=== PATIENT | male | born 1985 | race Hispanic/Latino ===

== ENCOUNTER 2018-08-08 20:59 | Emergency (ER) | payer OTHER, SELFPAY ==
[2018-08-08 21:07] VITALS: BP 142/79; PULSE 85; RESP 21; TEMP 36.5; O2SAT 100; BMI 25.8
--- NOTE | 2018-08-08 21:11 | ED.NEUROSD ---
HPI - Neuro Symptoms/Deficit General Chief Complaint: Neuro Symptoms/Deficit Stated Complaint: LEFT SIDE NUMBNESS VERTIGO HARD TIME SWALLOWING Time Seen by Provider: 08/08/18 21:09 Source: patient Mode of arrival: ambulatory Limitations: no limitations History of Present Illness HPI Narrative: A 32-year-old male presents to the emergency department today with a chief complaint of neurologic constellation of symptoms including headache and his left frontal region as well as some left-sided facial numbness. The numbness has been present today for about the past 6 or 7 hr and came on suddenly but he has had episodes in the past. He does not think there is any temporal relationship between the numbness and his pain. Additionally the patient complains of the perception of the an episode of difficulty swallowing earlier today. He denies any other focal neurologic findings. He recently had what he describes as a sinus infection with drainage of purulent sputum from left nostril. He denies chest pain or shortness of breath. He denies history of hypertension, hyperlipidemia, AFib, smoking or diabetes. Onset (ago): hour(s) Location: left face History of same: Yes Severity: mild Quality: numb Relieving factors: none Exacerbating factors: none Context: gradual onset On Anticoagulants: No Treatments Prior to Arrival: none Related Data Home Medications Medication Instructions Recorded Confirmed No Known Home Medications 08/08/18 08/08/18 Allergies Allergy/AdvReac Type Severity Reaction Status Date / Time No Known Drug Allergies Allergy Verified 08/08/18 21:14 Review of Systems Review of Systems All systems reviewed & are unremarkable except as noted in HPI and below Constitutional Denies chills, Denies fever(s), Denies lethargy and Denies weakness Eyes Denies change in vision, Denies eye discharge, Denies irritation and Denies loss of vision ENT Ears, Nose, Mouth, and Throat: Denies change in voice, Denies neck pain and Denies sore throat Cardiovascular Denies chest pain, Denies irregular heart rhythm, Denies lightheadedness, Denies palpitations, Denies dyspnea, Denies dyspnea on exertion and Denies orthopnea Respiratory Denies cough, Denies dyspnea, Denies dyspnea on exertion and Denies wheezing Gastrointestinal Gastrointestinal: Denies abdominal pain, Denies change in bowel habits, Denies diarrhea, Denies nausea and Denies vomiting Genitourinary Denies hematuria, Denies flank pain, Denies urinary incontinence and Denies urinary urgency Musculoskeletal Denies neck pain and Reports tingling Integumentary/Breasts Denies pruritus, Denies erythema, Denies rash and Denies wounds Neurologic Denies confusion, Denies loss of vision, Reports tingling and Denies weakness Psychiatric Denies anxiety, Denies confusion, Denies depression, Denies homicidal ideation and Denies suicidal ideation Endocrine Denies palpitations Hematologic/Lymphatic Denies easy bruising Allergic/Immunologic Denies wheezing [facility] Social History Smoking Status: Never smoker Exam Narrative Exam Narrative: GENERAL: This is a well-nourished, well-developed patient, in mild distress. HEAD: Atraumatic. Normocephalic. No temporal or scalp tenderness. EYES: Pupils equal round and reactive. Extraocular motions intact. No scleral icterus. No injection or drainage. ENT: Nose without bleeding, purulent drainage or septal hematoma. Throat without erythema, tonsillar hypertrophy or exudate. Uvula midline. Airway patent. NECK: Trachea midline. No JVD or lymphadenopathy. Supple, nontender, no meningeal signs. CARDIOVASCULAR: Regular rate and rhythm without murmurs, gallops, or rubs. RESPIRATORY: Clear to auscultation. Breath sounds equal bilaterally. No wheezes, rales, or rhonchi. GASTROINTESTINAL: Abdomen soft, non-tender, nondistended. No hepato-splenomegaly, or palpable masses. No guarding. EXTREMITIES: No clubbing, cyanosis, or edema. No joint tenderness, effusion, or edema noted. BACK: Nontender without deformity or crepitance. No flank tenderness. NEURO: AOx3. SKIN: No rash or erythema. NIH Stroke Scale 1a. LOC: Patient is alert and keenly responsive (0) 1b. LOC Questions: Patient answers both LOC questions accurately (0) 1c. LOC Commands: Patient performs both tasks correctly (0) 2. Best Gaze: Normal (0) 3. Visual: No visual loss (0) 4. Facial palsy: Normal symmetrical movements (0) 5. Motor arm: No drift (0) 6. Motor leg: No drift (0) 7. Limb ataxia: Absent (0) 8. Sensory: Normal (0) 9. Best language: No aphasia; normal (0) 10. Dysarthria: Normal (0) 11. Extinction and inattention: No abnormality (0) NIHSS: 0 Initial Vital Signs Initial Vital Signs: Vital Signs Temperature 97.7 F 08/08/18 21:07 Pulse Rate 85 08/08/18 21:07 Respiratory Rate 21 08/08/18 21:07 Blood Pressure 142/79 H 08/08/18 21:07 Pulse Oximetry 100 08/08/18 21:07 MDM - Neuro Symptoms/Deficit Differential Diagnosis Likely subarachnoid hemorrhage, peripheral neuropathy, cerebrovascular accident, multiple sclerosis and transient cerebral ischemia Medical Records Attestation: I reviewed the patient's medical records. Lab Data Attestation: I reviewed the patient's lab results. Result diagrams: 08/08/18 21:10 08/08/18 21:10 Lab Results 08/08/18 08/08/18 Range/Units 21:10 21:10 WBC 10.4 (4.5-11.0) X10^3/uL RBC 4.72 (4.5-5.9) X10^6/uL Hgb 14.3 (13.5-17.5) g/dL Hct 41.0 (41-53) % MCV 86.7 (80-100) fL MCH 30.3 (26-34) PG MCHC 34.9 (30-36) % RDW 12.7 (11.6-14.8) % Plt Count 220 (150-400) X10^3/uL Neut % (Auto) 62.9 (50-75) % Lymph % (Auto) 27.7 (25-40) % Mcdonough % (Auto) 7.0 (3-14) % Eos % (Auto) 1.8 L (2-4) % Baso % (Auto) 0.6 (0-2) % Neut # (Auto) 6500 H (2625-0188) /uL Sodium 142 (137-145) mmol/L Potassium 4.2 (3.4-5.1) mmol/L Chloride 104 (98-107) mmol/L Carbon Dioxide 27 (22-32) mmol/L BUN 28 H (9-20) mg/dL Creatinine 1.20 (0.66-1.25) mg/dL Estimated GFR > 60.0 (>60) mL/min BUN/Creatinine Ratio 23.3 H (6-22) Glucose 109 H (70-100) mg/dL Calcium 9.6 (8.4-10.2) mg/dL Imaging Data CT scan - head: Radiologist's impression: No acute process CT angio of head neck: No acute process MDM Narrative Medical decision making narrative: Multiple diagnoses including ischemic and hemorrhagic stroke. Thought less likely given resolution of symptoms as well as normal imaging. Contreras's palsy considered but patient has resolution of symptoms and findings not limited to lower motor neuron of the facial nerve. Migraine or migraine equivalent considered very likely Discharge Plan Departure Patient Disposition: Home Clinical Impression: Headache Discharge Date/Time: 08/08/18 23:55 Interventions: ED Discharge Assessment Last Done: 08/08/18 23:53 Instructions: DI for Headache Activity Restrictions/Additional Instructions: *You have been diagnosed with [ acute headache ] *What to do: *Take medications as directed *Follow up with your primary care provider on August 14 as planned, but let them know you were seen in the Emergency Department and that we ask that you be seen in follow up *Return to ER if you should have any new, worsening or concerning symptoms Prescriptions: No Action No Known Home Medications RF: 0
--- NOTE | 2018-08-08 21:29 | DI.CT.S_ITS ---
PROCEDURE: CT HEAD/BRAIN WO CON INDICATIONS: HEREDIA, neuro symptoms TECHNIQUE: Noncontrast 4.5 mm thick angled axial sections acquired from the foramen magnum to the vertex, with coronal and sagittal reformats. For radiation dose reduction, the following was used: automated exposure control, adjustment of mA and/or kV according to patient size. COMPARISON: None. FINDINGS: Image quality: Excellent. CSF spaces: Basal cisterns are patent. No extra-axial fluid collections. Ventricles are normal in size and shape. Brain: No midline shift. No intracranial masses or hemorrhage. Galvan-white matter interface is normal. Skull and face: Calvarium and visualized facial bones are intact, without suspicious lesions. Sinuses: Mild right maxillary sinus disease. IMPRESSION: No acute intracranial process. Dictated by: Ze Washington M.D. on 08/08/2018 at 22:15 Approved by: Ze Washington M.D. on 08/08/2018 at 22:18
[2018-08-08 21:30] VITALS: BP 105/65; PULSE 69; RESP 16; O2SAT 99
--- NOTE | 2018-08-08 22:14 | DI.CT.S_ITS ---
PROCEDURE: CT ANGIO HEAD AND NECK INDICATIONS: headache, numbness, dizziness, can't swallow TECHNIQUE: Pre-contrast 4.5 mm thick sections acquired from the foramen magnum to the vertex. After the administration of intravenous contrast, 1 mm thick sections acquired from the aortic arch through the [place] of [place]. Post-contrast 4.5 mm thick sections then re-acquired from the foramen magnum to the vertex. 3-dimensional [id number]-xzrlbvbmb-czkzmgysti (MIP) and/or volume rendering reformats were acquired of the central intracranial vasculature and neck separately. COMPARISON: [facility], CT, CT HEAD/BRAIN WO CON, 08/08/2018, 21:33. FINDINGS: Image quality: Excellent. BRAIN: CSF spaces: Ventricles are normal in size and shape. Basal cisterns are patent. No extra-axial fluid collections. Brain: No midline arch. The origins of the common carotid arteries appear patent. The common carotid arteries demonstrate normal caliber and courses. The bifurcation regions are both widely patent. The internal carotid arteries demonstrate normal calibers and courses. Posterior circulation: The origins of the vertebral arteries both appear widely patent. The more superior extracranial portions of both vertebral arteries also demonstrate normal courses and calibers. They join to form a normal appearing basilar artery. Soft tissues: Visualized neck soft tissues demonstrate no suspicious abnormalities. Bones: No suspicious bony lesions. Visualized cervical spine demonstrates loss of the normal cervical lordosis, which may be secondary to muscle spasm or positioning. IMPRESSION: #1. No acute intracranial abnormality. #2. No CTA evidence of acute vascular pathology of the large vessels of the head and neck. This report is concordant with the overnight manufacturing supervisor 2nd shift radiology preliminary report of Dr. Ihsan Young. Any quantitative measurements of stenosis were performed using NASCET criteria. Dictated by: Rodriguez Lazo M.D. on 08/09/2018 at 18:40 Approved by: Rodriguez Lazo M.D. on 08/09/2018 at 18:58
[2018-08-08 22:22] LABS: Add Manual Diff / Slide Review NO; Basophils Percent Auto 0.6 % (0-2); Eosinophils Percent Auto 1.8 % (2-4); Hemoglobin 14.3 g/dL (13.5-17.5); Lymphocytes Percent Auto 27.7 % (25-40); Mean Corpuscular HGB Conc 34.9 % (30-36); Mean Corpuscular Hemoglobin 30.3 PG (26-34); Mean Corpuscular Volume 86.7 fL (80-100); Neutrophils Absolute Auto 6500 /uL (3000-5900); Neutrophils Percent Auto 62.9 % (50-75); Platelet Count 220 X10^3/uL (150-400); Red Blood Cell Count 4.72 X10^6/uL (4.5-5.9); Red Cell Distribution Width 12.7 % (11.6-14.8); White Blood Cell Count 10.4 X10^3/uL (4.5-11.0)
[2018-08-08 22:40] VITALS: BP 118/62; PULSE 76; RESP 16; O2SAT 100
[2018-08-08 23:37] LABS: BUN Creatinine Ratio 23.3 (6-22); Blood Urea Nitrogen 28 mg/dL (9-20); Calcium 9.6 mg/dL (8.4-10.2); Carbon Dioxide 27 mmol/L (22-32); Chloride 104 mmol/L (98-107); Estimated Glomerular Filt Rate > 60.0 mL/min (>60); Glucose 109 mg/dL (70-100); HEMOLYSIS 15 (0-50); Potassium 4.2 mmol/L (3.4-5.1); Sodium 142 mmol/L (137-145)
[2018-08-08 23:48] VITALS: BP 122/67; PULSE 63; RESP 17; O2SAT 98
[2018-08-08 23:53] VITALS: BP 122/67; PULSE 64; RESP 16; TEMP 36.4; O2SAT 98
--- NOTE | 2018-08-10 02:15 | ED_ITS ---
HPI - Neuro Symptoms/Deficit General Chief Complaint: Neuro Symptoms/Deficit Stated Complaint: LEFT SIDE NUMBNESS VERTIGO HARD TIME SWALLOWING Time Seen by Provider: 08/08/18 21:09 Source: patient Mode of arrival: ambulatory Limitations: no limitations History of Present Illness HPI Narrative: A 32-year-old male presents to the emergency department today with a chief complaint of neurologic constellation of symptoms including headache and his left frontal region as well as some left-sided facial numbness. The numbness has been present today for about the past 6 or 7 hr and came on suddenly but he has had episodes in the past. He does not think there is any temporal relationship between the numbness and his pain. Additionally the patient complains of the perception of the an episode of difficulty swallowing earlier today. He denies any other focal neurologic findings. He recently had what he describes as a sinus infection with drainage of purulent sputum from left nostril. He denies chest pain or shortness of breath. He denies history of hypertension, hyperlipidemia, AFib, smoking or diabetes. Onset (ago): hour(s) Location: left face History of same: Yes Severity: mild Quality: numb Relieving factors: none Exacerbating factors: none Context: gradual onset On Anticoagulants: No Treatments Prior to Arrival: none Related Data Home Medications Medication Instructions Recorded Confirmed No Known Home Medications 08/08/18 08/08/18 Allergies Allergy/AdvReac Type Severity Reaction Status Date / Time No Known Drug Allergies Allergy Verified 08/08/18 21:14 Review of Systems Review of Systems All systems reviewed & are unremarkable except as noted in HPI and below Constitutional Denies chills, Denies fever(s), Denies lethargy and Denies weakness Eyes Denies change in vision, Denies eye discharge, Denies irritation and Denies loss of vision ENT Ears, Nose, Mouth, and Throat: Denies change in voice, Denies neck pain and Denies sore throat Cardiovascular Denies chest pain, Denies irregular heart rhythm, Denies lightheadedness, Denies palpitations, Denies dyspnea, Denies dyspnea on exertion and Denies orthopnea Respiratory Denies cough, Denies dyspnea, Denies dyspnea on exertion and Denies wheezing Gastrointestinal Gastrointestinal: Denies abdominal pain, Denies change in bowel habits, Denies diarrhea, Denies nausea and Denies vomiting Genitourinary Denies hematuria, Denies flank pain, Denies urinary incontinence and Denies urinary urgency Musculoskeletal Denies neck pain and Reports tingling Integumentary/Breasts Denies pruritus, Denies erythema, Denies rash and Denies wounds Neurologic Denies confusion, Denies loss of vision, Reports tingling and Denies weakness Psychiatric Denies anxiety, Denies confusion, Denies depression, Denies homicidal ideation and Denies suicidal ideation Endocrine Denies palpitations Hematologic/Lymphatic Denies easy bruising Allergic/Immunologic Denies wheezing [facility] Social History Smoking Status: Never smoker Exam Narrative Exam Narrative: GENERAL: This is a well-nourished, well-developed patient, in mild distress. HEAD: Atraumatic. Normocephalic. No temporal or scalp tenderness. EYES: Pupils equal round and reactive. Extraocular motions intact. No scleral icterus. No injection or drainage. ENT: Nose without bleeding, purulent drainage or septal hematoma. Throat without erythema, tonsillar hypertrophy or exudate. Uvula midline. Airway patent. NECK: Trachea midline. No JVD or lymphadenopathy. Supple, nontender, no meningeal signs. CARDIOVASCULAR: Regular rate and rhythm without murmurs, gallops, or rubs. RESPIRATORY: Clear to auscultation. Breath sounds equal bilaterally. No wheezes , rales, or rhonchi. GASTROINTESTINAL: Abdomen soft, non-tender, nondistended. No hepato-splenomegaly , or palpable masses. No guarding. EXTREMITIES: No clubbing, cyanosis, or edema. No joint tenderness, effusion, or edema noted. BACK: Nontender without deformity or crepitance. No flank tenderness. NEURO: AOx3. SKIN: No rash or erythema. NIH Stroke Scale 1a. LOC: Patient is alert and keenly responsive (0) 1b. LOC Questions: Patient answers both LOC questions accurately (0) 1c. LOC Commands: Patient performs both tasks correctly (0) 2. Best Gaze: Normal (0) 3. Visual: No visual loss (0) 4. Facial palsy: Normal symmetrical movements (0) 5. Motor arm: No drift (0) 6. Motor leg: No drift (0) 7. Limb ataxia: Absent (0) 8. Sensory: Normal (0) 9. Best language: No aphasia; normal (0) 10. Dysarthria: Normal (0) 11. Extinction and inattention: No abnormality (0) NIHSS: 0 Initial Vital Signs Initial Vital Signs: Vital Signs Temperature 97.7 F 08/08/18 21:07 Pulse Rate 85 08/08/18 21:07 Respiratory Rate 21 08/08/18 21:07 Blood Pressure 142/79 H 08/08/18 21:07 Pulse Oximetry 100 08/08/18 21:07 MDM - Neuro Symptoms/Deficit Differential Diagnosis Likely subarachnoid hemorrhage, peripheral neuropathy, cerebrovascular accident , multiple sclerosis and transient cerebral ischemia Medical Records Attestation: I reviewed the patient's medical records. Lab Data Attestation: I reviewed the patient's lab results. Result diagrams: 08/08/18 21:10 08/08/18 21:10 Lab Results 08/08/18 08/08/18 Range/Units 21:10 21:10 WBC 10.4 (4.5-11.0) X10^3/uL RBC 4.72 (4.5-5.9) X10^6/uL Hgb 14.3 (13.5-17.5) g/dL Hct 41.0 (41-53) % MCV 86.7 (80-100) fL MCH 30.3 (26-34) PG MCHC 34.9 (30-36) % RDW 12.7 (11.6-14.8) % Plt Count 220 (150-400) X10^3/uL Neut % (Auto) 62.9 (50-75) % Lymph % (Auto) 27.7 (25-40) % Marshall % (Auto) 7.0 (3-14) % Eos % (Auto) 1.8 L (2-4) % Baso % (Auto) 0.6 (0-2) % Neut # (Auto) 6500 H (4042-6374) /uL Sodium 142 (137-145) mmol/L Potassium 4.2 (3.4-5.1) mmol/L Chloride 104 (98-107) mmol/L Carbon Dioxide 27 (22-32) mmol/L BUN 28 H (9-20) mg/dL Creatinine 1.20 (0.66-1.25) mg/dL Estimated GFR > 60.0 (>60) mL/min BUN/Creatinine Ratio 23.3 H (6-22) Glucose 109 H (70-100) mg/dL Calcium 9.6 (8.4-10.2) mg/dL Imaging Data CT scan - head: Radiologist's impression: No acute process CT angio of head neck: No acute process MDM Narrative Medical decision making narrative: Multiple diagnoses including ischemic and hemorrhagic stroke. Thought less likely given resolution of symptoms as well as normal imaging. Contreras's palsy considered but patient has resolution of symptoms and findings not limited to lower motor neuron of the facial nerve. Migraine or migraine equivalent considered very likely Discharge Plan Departure Patient Disposition: Home Clinical Impression: Headache Discharge Date/Time: 08/08/18 23:55 Interventions: ED Discharge Assessment Last Done: 08/08/18 23:53 Instructions: DI for Headache Activity Restrictions/Additional Instructions: *You have been diagnosed with [ acute headache ] *What to do: *Take medications as directed *Follow up with your primary care provider on August 14 as planned, but let them know you were seen in the Emergency Department and that we ask that you be seen in follow up *Return to ER if you should have any new, worsening or concerning symptoms Prescriptions: No Action No Known Home Medications RF: 0
== END 2018-08-08 23:55 | disposition home or self-care (01) ==
PROVIDERS: Emergency Provider Emergency Medicine
DX: R51 Headache (principal)
CPT/HCPCS: 36591; 70450; 70496; 70498; 80048; 85025; 99283; 99284; Q9967

== ENCOUNTER 2019-10-06 14:55 | Emergency (ER) | payer OTHER, SELFPAY ==
[2019-10-06 15:06] VITALS: BP 143/74; PULSE 69; RESP 18; TEMP 36.4; O2SAT 100; BMI 27.2
--- NOTE | 2019-10-06 15:20 | ED_ITS ---
HPI - Neuro Symptoms/Deficit General Chief Complaint: Neuro Symptoms/Deficit Stated Complaint: pressure in head and tingling on face Time Seen by Provider: 10/06/19 15:17 Source: patient Mode of arrival: Family Vehicle Limitations: no limitations History of Present Illness HPI Narrative: Is patient is a 33-year-old male with variety of symptoms ongoing for last 2 weeks. He says that he has intermittent headaches not consistent he currently does not have a headache. He did have some right facial numbness but now he has of bilateral facial numbness he says it just feels different on each side. Which is fairly constant. He also has bilateral flank pain, nonradiating to his legs. He has some minimal abdominal discomfort on both sides, no nausea or vomiting. He has no fevers no neck pain no painful frequent urination no hematuria. He has been taking Aleve without any relief, he denies any visual changes. He sometimes has a band around his head behind his eyes but does not currently. On Anticoagulants: No Related Data Previous Rx's Medication Instructions Recorded prednisone 20 mg PO DAILY #5 tab 10/06/19 Allergies Allergy/AdvReac Type Severity Reaction Status Date / Time No Known Drug Allergies Allergy Verified 10/06/19 15:11 Review of Systems Review of Systems ROS Unobtainable: All systems reviewed & are unremarkable except as noted in HPI and below Constitutional Constitutional: Denies chills, Denies fever(s), Denies lethargy and Reports weakness Eyes Eyes: Denies change in vision, Denies eye discharge, Denies irritation and Denies loss of vision ENT Ears, Nose, Mouth, and Throat: Denies change in voice, Denies neck pain and Denies sore throat Cardiovascular Cardiovascular: Denies chest pain, Denies irregular heart rhythm, Denies lightheadedness, Denies palpitations, Denies dyspnea, Denies dyspnea on exertion and Denies orthopnea Respiratory Respiratory: Denies cough, Denies dyspnea, Denies dyspnea on exertion and Denies wheezing Gastrointestinal Gastrointestinal: Denies abdominal pain, Denies change in bowel habits, Denies diarrhea, Denies nausea and Denies vomiting Musculoskeletal Musculoskeletal: Denies neck pain and Reports tingling Neurologic Neurologic: Denies confusion, Denies loss of vision, Reports tingling, Denies paresthesias, Denies tremor(s) and Reports weakness Psychiatric Psychiatric: Denies anxiety, Denies confusion, Denies depression, Denies homicidal ideation and Denies suicidal ideation Endocrine Endocrine: Denies palpitations Allergic/Immunologic Allergic/Immunologic: Denies wheezing Patient History Medical History Patient denies medical problems (Acute) Social History Smoking Status: Never smoker alcohol intake frequency: 0-2 drinks per day Substance Use Type: does not use Exam Initial Vital Signs Initial Vital Signs: Vital Signs Temperature 97.6 F 10/06/19 15:06 Pulse Rate 69 10/06/19 15:06 Respiratory Rate 18 10/06/19 15:06 Blood Pressure 143/74 H 10/06/19 15:06 Pulse Oximetry 100 10/06/19 15:06 GENERAL: Well-appearing, well-nourished and in no acute distress. HEENT: Head atraumatic,EOMI, pupils reactive, face symmetric, very minimal tenderness in temporal a areas bilaterally CARDIOVASCULAR: Regular rate and rhythm without murmurs, rubs or gallops. RESPIRATORY: Breath sounds equal bilaterally, no wheezes rales or rhonchi. ABDOMEN: Soft, nontender. Normoactive bowel sounds all 4 quadrants. No guarding or rebound. : Minimal bilateral flank pain no guarding or rebound EXTREMITIES: Normal range of motion, no clubbing or edema. Neurovascularly intact NEUROLOGICAL: Alert and oriented x4.Normal gait and speech. Cranial nerves II through XII grossly intact. [employer] strength equal bilaterally good [id number] bilaterally SKIN: Warm, dry, no laceration, no petechiae, no rashes or lesions. Scores NIH Stroke Scale Level of Conciousness: Alert, keenly responsive Ask month/age: Answers both questions correctly. Open/close eyes, close hand: Performs both tasks correctly Best gaze horizontal: Normal Visual steward: No visual loss Facial palsy: Normal symetrical movement Left arm drift: No drift for full 10 sec Right arm drift: No drift for full 10 sec Left leg drift: No drift for full 10 sec Right leg drift: No drift for full 10 sec Limb ataxia: Absent Sensory on face/arms/legs: Normal, no sensory loss Best language: No aphasia, normal Dysarthria: Normal Extinction or inattention: No abnormality Total NIH Stroke scale score: 0 Course Orders Ordered: Discontinued Medications Ketorolac Tromethamine (Toradol) 30 mg IM NOW ONE Stop: 10/06/19 15:36 Last Admin: 10/06/19 16:26 Dose: 30 mg Documented by: MELANIA Vital Signs Vital signs: Vital Signs - 8 hr 10/06/19 15:06 10/06/19 17:37 Temperature 97.6 F 98.7 F Pulse Rate 69 56 L Respiratory Rate 18 14 Blood Pressure 143/74 H 112/73 Pulse Oximetry 100 100 MDM - Neuro Symptoms/Deficit Lab Data Attestation: I reviewed the patient's lab results. Labs: Urine Dip Bedside Urine Glucose Negative Bedside Urine Bilirubin - Negative Bedside Urine Ketone - Negative Urine Specific [place] 1.005 Bedside Urine Occult Blood - Negative Bedside Urine pH 7.5 Bedside Urine Protein - Negative Bedside Urine Urobilinogen - Negative Bedside Urine Nitrite - Negative Bedside Urine Leukocytes - Negative Esterase [facility] Narrative Medical decision making narrative: Patient's back pain is slightly better after Toradol. No sign of UTI he has had bilateral facial numbness. It is really only tingling bilaterally. No sign of stroke. He overall appears comfortable. At this time I recommend follow up with PCP on the face he got a Neurology appointment but is a number of months away. At this time will try prednisone to see if that helped any of his symptoms. No sign of [place]ras palsy. Discharge Plan Departure Patient Disposition: Home Clinical Impression: Facial numbness Back pain Qualifiers: Back pain location: low back pain Chronicity: acute Back pain laterality: bilateral Sciatica presence: without sciatica Qualified Code(s): M54.5 - Low back pain Instructions: DI for Low Back Pain, DI for Numbness/tingling Activity Restrictions/Additional Instructions: *You have been diagnosed with low back pain with facial numbness *What to do: At this time unknown what is causing her facial numbness. No sign of UTI. You may require neurology evaluation if headaches and facial numbness continue at this time no indication of stroke *Continue to take medications as directed Prednisone 20 mg once a day for 5 days (do not combine with NSAIDs such as ibuprofen Aleve Advil, you may take Tylenol as directed) *Follow up with your primary care provider in 2-3 days *Return to ER if you should have extremity weakness increasing numbness inability to close or open eyes facial drooping or any new, worsening or concerning symptoms Prescriptions: New prednisone 20 mg tablet 20 mg PO DAILY Qty: 5 RF: 0
[2019-10-06] MEDS: KETOROLAC 60 MG/2 ML VIAL 30 MG IM (16:26)
[2019-10-06 17:37] VITALS: BP 112/73; PULSE 56; RESP 14; TEMP 37.1; O2SAT 100
--- NOTE | 2019-10-06 17:58 | PC.NURSE ---
Patient reports facial tingling x14 days. Started out on one side, now on both the last few days. Also reports some sinus pressure, pain.
== END 2019-10-06 17:37 | disposition home or self-care (01) ==
PROVIDERS: Emergency Provider Emergency Medicine
DX: R20.0 Anesthesia of skin (principal); M54.5 Low back pain
CPT/HCPCS: 81003; 96372; 99282; 99283; J1885

== ENCOUNTER 2019-10-14 04:08 | Emergency (ER) | payer OTHER, SELFPAY ==
[2019-10-14 04:16] VITALS: BP 140/81; PULSE 74; RESP 15; TEMP 36.4; O2SAT 100; BMI 25.8
--- NOTE | 2019-10-14 04:30 | DI.CT.S_ITS ---
PROCEDURE: CT ANGIO HEAD AND NECK INDICATIONS: pressure/headaches/increasing intensity, vision changes, dizziness TECHNIQUE: Pre-contrast 4.5 mm thick sections acquired from the foramen magnum to the vertex. After the administration of intravenous contrast, 1 mm thick sections acquired from the aortic arch through the [place] of [place]. Post-contrast 4.5 mm thick sections then re-acquired from the foramen magnum to the vertex. 3-dimensional [id number] (MIP) and/or volume rendering reformats were acquired of the central intracranial vasculature and neck separately. COMPARISON: [facility], CT, CT ANGIO HEAD AND NECK, 08/08/2018, 22:13. FINDINGS: Image quality: Excellent. BRAIN: CSF spaces: Ventricles are normal in size and shape. Basal cisterns are patent. No extra-axial fluid collections. Brain: No midline shift. No intracranial bleeds or masses. Galvan-white matter interface appears intact. Skull and face: Calvarium and facial bones appear intact, without suspicious lesions. Orbits appear normal. Sinuses: Sinuses and mastoids are clear. HEAD CT ANGIOGRAPHY: Anterior circulation: Intracranial internal carotid arteries are normal in size and flow. The flow within the paired anterior cerebral arteries is normal and symmetric. The flow within the middle cerebral arteries is normal and symmetric. The anterior communicating artery is seen. No aneurysms are seen. Posterior circulation: Visualized portions of the vertebral arteries demonstrate normal caliber, and join to form a normal appearing basilar artery. Flow within the posterior cerebral arteries is normal and symmetric. No aneurysms are seen. NECK CT ANGIOGRAPHY: Carotid system: The great vessels demonstrate a conventional anatomy as they arise from the aortic arch. The origins of the common carotid arteries appear patent. The common carotid arteries demonstrate normal caliber and courses. The bifurcation regions are both widely patent. The internal carotid arteries demonstrate normal calibers and courses. Posterior circulation: The origins of the vertebral arteries both appear widely patent. The more superior extracranial portions of both vertebral arteries also demonstrate normal courses and calibers. They join to form a normal appearing basilar artery. Soft tissues: Visualized neck soft tissues demonstrate no suspicious abnormalities. Bones: No suspicious bony lesions. Visualized cervical spine appears normally aligned. IMPRESSION: 1. No acute intracranial abnormalities. 2. Normal head CTA. 3. Normal neck CTA. No significant discrepancy with the night custodian radiology preliminary report. Any quantitative measurements of stenosis were performed using NASCET criteria. Dictated by: Dixie Edwards M.D. on 10/14/2019 at 8:06 Approved by: Dixie Edwards M.D. on 10/14/2019 at 8:11
--- NOTE | 2019-10-14 04:30 | ED.HA ---
HPI - Headache General Chief Complaint: Headache Stated Complaint: head pressure blurred dizziness Time Seen by Provider: 10/14/19 04:09 Source: patient Mode of arrival: Family Vehicle Limitations: no limitations History of Present Illness HPI Narrative: This is a 33-year-old male who comes to the emergency department with complaint of several months of pressure on the side of his head initially starting with some on the left cheek and then increasing pressure on the sides of his head. He states not really a pain it is more just a pressure although he does occasionally get headaches. He states it has become more constant and increasing in intensity. He sometimes feels like his vision is a little blurred. He has had vertigo in the past but denies any vertigo symptoms recently. He has felt a little bit dizzy or slightly off balance. He has not had any difficulty speech, no weakness, numbness or tingling in extremities. He denies any chest pain or pressure. Occasionally feels a little nauseated. No vomiting. No diarrhea, no constipation or urinary issues. Patient states that he was seeing his physician about some cramping in his abdomen and had some labs that showed his liver function or renal function maybe a little bit off. He denies any prior surgeries. He states that his mother was diagnosed with Parkinson's in her 50s, has an aunt who had an aneurysm. He has not had any severe headaches, thunderclap or worst headaches of his life. Patient states that this evening he came in because the headache was becoming more constant. Related Data Previous Rx's Medication Instructions Recorded prednisone 20 mg PO DAILY #5 tab 10/06/19 fluticasone propionate [Flonase 1 spray NASAL DAILY #15.8 ml 10/14/19 Allergy Relief] Allergies Allergy/AdvReac Type Severity Reaction Status Date / Time No Known Drug Allergies Allergy Verified 10/06/19 15:11 Review of Systems Review of Systems ROS Unobtainable: All systems reviewed & are unremarkable except as noted in HPI and below Constitutional Constitutional: Reports headache(s) and Denies weakness Eyes Eyes: Reports blurry vision, Denies diplopia and Denies loss of vision ENT Ears, Nose, Mouth, and Throat: Denies abnormal hearing, Denies vertigo, Reports dizziness, Denies otalgia, Denies facial pain, Reports headache(s), Denies neck mass, Denies neck pain, Denies tinnitus and Denies sinus pressure Cardiovascular Cardiovascular: Denies chest pain, Denies syncope, Denies edema, Denies dyspnea and Denies dyspnea on exertion Respiratory Respiratory: Denies cough, Denies dyspnea, Denies dyspnea on exertion and Denies wheezing Gastrointestinal Gastrointestinal: Denies abdominal pain, Denies change in bowel habits, Denies diarrhea, Denies nausea and Denies vomiting Musculoskeletal Musculoskeletal: Denies abnormal gait, Denies neck pain, Denies numbness and Reports tingling Integumentary/Breasts Skin/Breast: Denies erythema Neurologic Neurologic: Denies abnormal hearing, Denies abnormal movements, Denies abnormal speech, Denies abnormal gait, Denies confusion, Denies vertigo, Reports dizziness, Denies syncope, Reports headache(s), Denies focal weakness, Denies loss of vision, Denies numbness, Denies seizure-like activity, Denies sensory deficit, Reports tingling and Denies weakness Psychiatric Psychiatric: Denies confusion Allergic/Immunologic Allergic/Immunologic: Denies wheezing Patient History Medical History Patient denies medical problems (Acute) Family History (Updated 10/14/19 @ 04:38 by Jessica Jerez DO) Mother Parkinson disease Social History Smoking Status: Never smoker alcohol intake frequency: a few times a month Substance Use Type: does not use Exam Narrative Exam Narrative: GEN: well nourished, well appearing male, alert and oriented x 3, patient appears to be in no acute distress. HEENT: Atraumatic, pupils are equal round reactive to light, extraocular movements are intact, nares are clear, TMs are clear with no fluid, there is no conjunctival pallor. Throat is clear without any exudates, erythema, tonsillar enlargement or uvular deviation, nontender to temples. No sinus tenderness. No facial droop. No swelling or erythema of the face. HEART: Regular rate and rhythm without murmur, clicks, rubs. No carotid bruits, pulses are equal in upper and lower extremities LUNGS:Lungs clear to auscultation, no wheezes, rales, crackles, chest moves symmetrically ABD:bowel sounds normal, soft, non-tender, no guarding, rebound, rigidity, no masses noted, no hepatosplenomegaly :No CVA tenderness MSCL: Non-tender, no muscle atrophy, muscles strength 5/5 upper and lower extremities, full range of motion, normal gait NEURO:CN 2-12 intact, sensation normal, reflexes 2/4 upper and lower extremities. finger nose finger test normal, heel cardoso test normal SKIN: no rash, no erythema, no petechiae. Initial Vital Signs Initial Vital Signs: Vital Signs Temperature 97.5 F L 10/14/19 04:16 Pulse Rate 74 10/14/19 04:16 Respiratory Rate 15 10/14/19 04:16 Blood Pressure 140/81 10/14/19 04:16 Pulse Oximetry 100 10/14/19 04:16 Scores NIH Stroke Scale Level of Conciousness: Alert, keenly responsive Ask month/age: Answers both questions correctly. Open/close eyes, close hand: Performs both tasks correctly Best gaze horizontal: Normal Visual steward: No visual loss Facial palsy: Normal symetrical movement Left arm drift: No drift for full 10 sec Right arm drift: No drift for full 10 sec Left leg drift: No drift for full 10 sec Right leg drift: No drift for full 10 sec Limb ataxia: Absent Sensory on face/arms/legs: Normal, no sensory loss Best language: No aphasia, normal Dysarthria: Normal Extinction or inattention: No abnormality Total NIH Stroke scale score: 0 Course Orders Ordered: ED Orders 10/14/19 04:30 CT angio head and neck Stat C-Reactive Protein Quant Stat Complete Blood Count AUTO DIFF Stat Comprehensive Metabolic Panel Stat Erythrocyte Sedimentation Rate Stat Discontinued Medications Sodium Chloride (Normal Saline 0.9%) 1,000 mls @ 1,000 mls/hr IV BOLUS ONE Stop: 10/14/19 05:29 Last Infusion: 10/14/19 05:33 Dose: 0 mls/hr Documented by: Admin: 10/14/19 04:43 Dose: 1,000 mls/hr Documented by: SEVEN Vital Signs Vital signs: Vital Signs - 8 hr 10/14/19 04:16 10/14/19 05:37 10/14/19 06:09 Temperature 97.5 F L Pulse Rate 74 72 78 Respiratory Rate 15 16 18 Blood Pressure 140/81 Blood Pressure [Left Arm] 122/74 128/73 Pulse Oximetry 100 100 100 MDM - Headache Lab Data Attestation: I reviewed the patient's lab results. Result diagrams: 10/14/19 04:30 10/14/19 04:30 Labs: Lab Results 10/14/19 10/14/19 Range/Units 04:30 04:30 WBC 5.9 (4.5-11.0) X10^3/uL RBC 4.96 (4.5-5.9) X10^6/uL Hgb 14.8 (13.5-17.5) g/dL Hct 42.8 (41-53) % MCV 86.2 (80-100) fL MCH 29.8 (26-34) PG MCHC 34.5 (30-36) % RDW 12.7 (11.6-14.8) % Plt Count 235 (150-400) X10^3/uL Neut % (Auto) 63.4 (50-75) % Lymph % (Auto) 26.0 (25-40) % [place] % (Auto) 8.9 (3-14) % Eos % (Auto) 0.6 L (2-4) % Baso % (Auto) 1.1 (0-2) % Neut # (Auto) 3700 (4451-4302) /uL Lymph # (Auto) 1500 (9246-0937) /uL [place] # (Auto) 500 (0-900) /uL Eos # (Auto) 0 (0-450) /uL Baso # (Auto) 100 (0-100) /uL ESR 7 (0-15) MM/HR Sodium 140 (137-145) mmol/L Potassium 3.9 (3.4-5.1) mmol/L Chloride 100 (98-107) mmol/L Carbon Dioxide 29 (22-32) mmol/L BUN 9 (9-20) mg/dL Creatinine 1.00 (0.66-1.25) mg/dL Estimated GFR > 60.0 (>60) mL/min BUN/Creatinine Ratio 9.0 (6-22) Glucose 103 H (70-100) mg/dL Calcium 9.7 (8.4-10.2) mg/dL Total Bilirubin 3.1 H (0.2-1.3) mg/dL AST 20 (17-59) IU/L ALT 15 (<50) IU/L Alkaline Phosphatase 128 H (38-126) U/L C-Reactive Protein < 0.5 (<1.0) mg/dL Total Protein 8.4 H (6.3-8.2) g/dL Albumin 4.9 (3.5-5.0) g/dL Globulin 3.5 (1.7-4.1) g/dL Albumin/Globulin Ratio 1.4 (1.0-2.8) Imaging Data CT scan - head: Radiologist's impression: CT a and O head with contrast. Normal CTA no acute intracranial abnormality. Maxillary ethmoid and sphenoid sinusitis. CT without contrast shows normal parenchyma in volume and morphology. No intracranial hemorrhage, mass effect, midline shift or hydrocephalus is seen. No abnormal extra fluid collections noted MDM Narrative Medical decision making narrative: Patient initially stated that he had not been seen for these symptoms in the past but on review of his chart he has had 2 prior visits and had a CTA and had CT back in July of 2018. CTA today shows no acute findings. There is some maxillary sphenoid and ethmoid sinusitis, this potentially could cause patient's symptoms of pressure although he is more got temporal parietal symptoms. Patient does not have tenderness over the orthodoxy area so my suspicion for temporal arteritis with a negative CRP and ESR is low. Does have an elevated bilirubin although he has noted that his LFTs have been elevated and he is following with his physician and they are doing additional testing for this. Patient was updated about his lab results and CTA. Discussed that possibly this could be related to slow vision changes although he does not appreciate any major permanent vision changes and recommended ophthalmology appointment and evaluation followed by potentially neurologic if he continues to have these headaches and constellation of symptoms. Discharge Plan Departure Patient Disposition: Home Clinical Impression: Headache, Change in vision, Sinusitis Instructions: DI for Headache Activity Restrictions/Additional Instructions: Follow-up with your primary care physician in the next week for recheck. Discussed with your physician about having an Ophthalmology evaluation and/or neurology evaluation if they feel this is appropriate. Your CT today did show some maxillary, ethmoid and sphenoid sinusitis, this may be contributing to your symptoms and you can try Flonase each nostril once daily for the next 1-2 weeks to see if this improves her symptoms. Discussed with her physician if you should continue this medication or stop it. Return to the emergency department for fevers greater 100.4 F, passing out, sudden severe headaches or the worst headache of her life, loss of vision, persistent vomiting, facial droop, if you are not able to use your arms or legs or walk properly. Prescriptions: New fluticasone propionate [Flonase Allergy Relief] 50 mcg/actuation spray,suspension 1 spray NASAL DAILY Qty: 15.8 RF: 0 No Action prednisone 20 mg tablet 20 mg PO DAILY Qty: 5 RF: 0
[2019-10-14] MEDS: SODIUM CHLORIDE 0.9% 1,000 ML 1000 ML IV (04:43)
[2019-10-14 04:58] LABS: Add Manual Diff / Slide Review NO; Basophils Absolute Auto 100 /uL (0-100); Basophils Percent Auto 1.1 % (0-2); Eosinophils Absolute Auto 0 /uL (0-450); Eosinophils Percent Auto 0.6 % (2-4); Hematocrit 42.8 % (41-53); Hemoglobin 14.8 g/dL (13.5-17.5); Lymphocytes Absolute Auto 1500 /uL (1100-4500); Mean Corpuscular HGB Conc 34.5 % (30-36); Mean Corpuscular Hemoglobin 29.8 PG (26-34); Mean Corpuscular Volume 86.2 fL (80-100); Monocytes Absolute Auto 500 /uL (0-900); Monocytes Percent Auto 8.9 % (3-14); Neutrophils Absolute Auto 3700 /uL (1500-7000); Neutrophils Percent Auto 63.4 % (50-75); Platelet Count 235 X10^3/uL (150-400); Red Blood Cell Count 4.96 X10^6/uL (4.5-5.9); Red Cell Distribution Width 12.7 % (11.6-14.8); White Blood Cell Count 5.9 X10^3/uL (4.5-11.0)
[2019-10-14 05:04] LABS: Alanine Aminotransferase 15 IU/L (<50); Albumin 4.9 g/dL (3.5-5.0); Albumin Globulin Ratio 1.4 (1.0-2.8); Alkaline Phosphatase 128 U/L (38-126); Aspartate Aminotransferase 20 IU/L (17-59); Bilirubin Total 3.1 mg/dL (0.2-1.3); Blood Urea Nitrogen 9 mg/dL (9-20); Calcium 9.7 mg/dL (8.4-10.2); Carbon Dioxide 29 mmol/L (22-32); Chloride 100 mmol/L (98-107); Estimated Glomerular Filt Rate > 60.0 mL/min (>60); Globulin 3.5 g/dL (1.7-4.1); Glucose 103 mg/dL (70-100); HEMOLYSIS < 15 (0-50); Potassium 3.9 mmol/L (3.4-5.1); Sodium 140 mmol/L (137-145); Total Protein 8.4 g/dL (6.3-8.2)
[2019-10-14 05:06] LABS: C-Reactive Protein Quant < 0.5 mg/dL (<1.0)
[2019-10-14 05:16] LABS: Erythrocyte Sedimentation Rate 7 MM/HR (0-15)
[2019-10-14 05:37] VITALS: BP 122/74; PULSE 72; RESP 16; O2SAT 100
[2019-10-14 06:09] VITALS: BP 128/73; PULSE 78; RESP 18; O2SAT 100
[2019-10-14 06:31] VITALS: BP 128/78; PULSE 75; RESP 18; O2SAT 100
== END 2019-10-14 06:38 | disposition home or self-care (01) ==
PROVIDERS: Emergency Provider Emergency Medicine
DX: R51 Headache (principal); H53.9 Unspecified visual disturbance; J32.9 Chronic sinusitis, unspecified
CPT/HCPCS: 36415; 70496; 70498; 80053; 85025; 85651; 86140; 99283; 99284; Q9967

== ENCOUNTER 2019-10-18 21:04 | Emergency (ER) | payer OTHER, SELFPAY ==
[2019-10-18 21:05] VITALS: BP 138/63; PULSE 58; RESP 18; TEMP 36.6; O2SAT 100
--- NOTE | 2019-10-18 21:13 | ED.GENADULT ---
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 Was seen 3 days ago at an outside facility for right upper quadrant abdominal pain. Patient states he had labs and an ultrasound done at that time and was told that everything seemed to be unremarkable. He was placed on medications for reflux. He has talk with his primary doctor in does have referral to see Gastroenterology will that is not for several weeks from now. States that over the past day or so he started having pain in his epigastrium region. States he gets full very quickly. Is not vomiting. He states he feels like there is a lump in his upper abdomen Related Data Home Medications Medication Instructions Recorded Confirmed gabapentin 300 mg PO BEDTIME 10/18/19 10/18/19 lidocaine HCl [Lidocaine Viscous] 5 ml PO QID PRN 10/18/19 10/18/19 pantoprazole 20 mg PO DAILY 10/18/19 10/18/19 sucralfate 1 g PO QID PRN 10/18/19 10/18/19 Allergies Allergy/AdvReac Type Severity Reaction Status Date / Time No Known Drug Allergies Allergy Verified 10/18/19 21:14 Review of Systems Constitutional Constitutional: Denies fever(s) Cardiovascular Cardiovascular: Denies chest pain and Denies dyspnea Respiratory Respiratory: Denies dyspnea Gastrointestinal Gastrointestinal: Denies change in stool character Comments: Upper abdomen pain, feeling full early Musculoskeletal Musculoskeletal: Denies myalgias and Denies arthralgias Integumentary/Breasts Skin/Breast: Denies rash Neurologic Neurologic: Denies behavioral changes Psychiatric Psychiatric: Denies behavioral changes Hematologic/Lymphatic Hematologic/Lymphatic: Denies easy bleeding and Denies easy bruising Patient History Medical History GERD (gastroesophageal reflux disease) (Acute) Patient denies medical problems (Acute) Family History (Updated 10/14/19 @ 04:38 by Jessica Jerez DO) Mother Parkinson disease Social History Smoking Status: Never smoker Smoking Status: Never smoker alcohol intake frequency: a few times a month Substance Use Type: does not use Exam Initial Vital Signs Initial Vital Signs: Vital Signs Temperature 97.8 F 10/18/19 21:05 Pulse Rate 58 L 10/18/19 21:05 Respiratory Rate 18 10/18/19 21:05 Blood Pressure 138/63 10/18/19 21:05 Pulse Oximetry 100 10/18/19 21:05 Const General: cooperative, comfortable and anxious Orientation: alert and awake HENMT Head: normal to inspection and normocephalic Chest Chest: No crepitus and No tenderness Resp Effort & Inspection: normal respiratory effort GI Inspection: non-distended Palpation: soft, No firm, No guarding, No mass and tender (Epigastrium region) Skin Lesions: no lesions Rashes: no rashes Neuro General: alert and awake Cognition: normal cognition Speech: speech normal Extrem General: normal to inspection and capillary refill normal Psych Appearance: grossly normal and well kempt Course Orders Ordered: ED Orders 10/18/19 21:20 Complete Blood Count AUTO DIFF Stat Comprehensive Metabolic Panel Stat Lipase Stat 10/18/19 21:25 CT abdomen pelvis w con Stat Discontinued Medications Sodium Chloride (Normal Saline 0.9%) 1,000 mls @ 1,000 mls/hr IV BOLUS ONE Stop: 10/18/19 22:24 Last Infusion: 10/18/19 22:40 Dose: 0 mls/hr Documented by: Admin: 10/18/19 21:39 Dose: 1,000 mls/hr Documented by: NICOLETTE Vital Signs Vital signs: Vital Signs - 8 hr 10/18/19 21:05 10/19/19 00:03 Temperature 97.8 F Pulse Rate 58 L 65 Respiratory Rate 18 Blood Pressure 138/63 Blood Pressure [Left Arm] 124/77 Pulse Oximetry 100 100 Medical Decision Making Medical Records Medical records reviewed: Yes I reviewed the patient's medical records. Lab Data Lab results reviewed: Yes I reviewed the patient's lab results. Result diagrams: 10/18/19 21:20 10/18/19 21:20 Labs: Lab Results 10/18/19 10/18/19 Range/Units 21:20 21:20 WBC 7.3 (4.5-11.0) X10^3/uL RBC 4.86 (4.5-5.9) X10^6/uL Hgb 14.5 (13.5-17.5) g/dL Hct 41.6 (41-53) % MCV 85.6 (80-100) fL MCH 29.8 (26-34) PG MCHC 34.8 (30-36) % RDW 12.6 (11.6-14.8) % Plt Count 219 (150-400) X10^3/uL Neut % (Auto) 54.6 (50-75) % Lymph % (Auto) 34.2 (25-40) % Ogle % (Auto) 9.4 (3-14) % Eos % (Auto) 0.6 L (2-4) % Baso % (Auto) 1.2 (0-2) % Neut # (Auto) 4000 (8538-9515) /uL Lymph # (Auto) 2500 (3145-2533) /uL Ogle # (Auto) 700 (0-900) /uL Eos # (Auto) 0 (0-450) /uL Baso # (Auto) 100 (0-100) /uL Sodium 134 L (137-145) mmol/L Potassium 3.7 (3.4-5.1) mmol/L Chloride 94 L (98-107) mmol/L Carbon Dioxide 30 (22-32) mmol/L BUN 9 (9-20) mg/dL Creatinine 1.00 (0.66-1.25) mg/dL Estimated GFR > 60.0 (>60) mL/min BUN/Creatinine Ratio 9.0 (6-22) Glucose 89 (70-100) mg/dL Calcium 9.5 (8.4-10.2) mg/dL Total Bilirubin 3.0 H (0.2-1.3) mg/dL AST 22 (17-59) IU/L ALT 18 (<50) IU/L Alkaline Phosphatase 123 (38-126) U/L Total Protein 8.0 (6.3-8.2) g/dL Albumin 4.8 (3.5-5.0) g/dL Globulin 3.2 (1.7-4.1) g/dL Albumin/Globulin Ratio 1.5 (1.0-2.8) Lipase 85 (23-300) U/L Imaging Data CT scan - abdomen: Radiologist's impression: No acute abnormalities, no CT findings to correspond the patient's palpable abnormality MDM Narrative Medical decision making narrative: I was able to review the patient's ultrasound from his outside ED visit. It did have sludge in the gallbladder but no gallstones and no wall thickening and no fluid. The patient's ?mass? that he felt in his upper abdomen I suspected was his xiphoid process. Patient was fairly anxious about this finding. CT scan shows no acute abnormalities. His labs are unremarkable. We did discuss his GI issues. I do suspect that this is reflux disease. He does have Carafate at home and also viscous lidocaine and also a PPI. He is going to continue taking his medications. No further workup needed in the ER. He was given return precautions and follow-up instructions. He expressed understanding and agreement with plan. Discharge Plan Departure Patient Disposition: Home Clinical Impression: Abdominal pain Qualifiers: Abdominal location: epigastric Qualified Code(s): R10.13 - Epigastric pain Discharge Date/Time: 10/19/19 00:06 Instructions: DI for Gastroesophageal Reflux Disease (GERD) Activity Restrictions/Additional Instructions: Your CT scan and labs today were unremarkable. Continue the medications like we discussed. I do recommend you contact your medical department for a follow-up. Return to the emergency department for any new symptoms Prescriptions: No Action sucralfate 1 gram tablet 1 g PO QID PRN (Reason: GERD) RF: 0 pantoprazole 20 mg tablet,delayed release (DR/EC) 20 mg PO DAILY RF: 0 Lidocaine Viscous 2 % solution 5 ml PO QID PRN (Reason: GERD) RF: 0 gabapentin 100 mg capsule 300 mg PO BEDTIME RF: 0
--- NOTE | 2019-10-18 21:25 | DI.CT.S_ITS ---
PROCEDURE: CT ABDOMEN PELVIS W CON INDICATIONS: Epigastric pain, patient feels mass TECHNIQUE: After the administration of intravenous contrast, 5 mm thick sections acquired from the diaphragm to the symphysis. 5 mm coronal and sagittal reformats were acquired. For radiation dose reduction, the following was used: automated exposure control, adjustment of mA and/or kV according to patient size. COMPARISON: None. FINDINGS: Image quality: Excellent. ABDOMEN: Lung bases: Lung bases are clear. Heart size is normal. Solid organs: Liver is normal in size and enhancement. Gallbladder is within normal limits. Biliary system is non dilated. Pancreas enhances normally. Spleen is normal in size and enhancement. No adrenal nodules. Kidneys demonstrate normal size and enhancement, without hydronephrosis. Peritoneum and bowel: Bowel loops demonstrate normal wall thickness and caliber. Moderate amount of stool noted throughout the colon. No free fluid or air. The appendix is normal. Nodes and vessels: No retroperitoneal or mesenteric adenopathy by size criteria. Aorta and inferior vena cava are normal in size. Miscellaneous: No ventral hernias. No abnormality identified deep to the metallic BB localizer placed over the midline of the upper anterior abdomen in the region of the renata and palpable mass. PELVIS: Genitourinary: Bladder wall thickness is normal. Miscellaneous: No inguinal hernias or adenopathy. Bones: No suspicious bony lesions. No vertebral body compression fractures. IMPRESSION: 1. No acute disease process. 2. No free fluid or free air. 3. No dilated loops of bowel. 4. The appendix is normal. 5. Moderate colonic fecal loading. Please correlate with clinical data. 6. No CT finding identified in the reported region of patient's palpable abnormality. Dictated by: Taylor Infante MD, PhD on 10/19/2019 at 7:25 Approved by: Taylor Infante MD, PhD on 10/19/2019 at 7:29
[2019-10-18 21:33] LABS: Add Manual Diff / Slide Review NO; Basophils Absolute Auto 100 /uL (0-100); Basophils Percent Auto 1.2 % (0-2); Eosinophils Absolute Auto 0 /uL (0-450); Eosinophils Percent Auto 0.6 % (2-4); Hematocrit 41.6 % (41-53); Hemoglobin 14.5 g/dL (13.5-17.5); Lymphocytes Absolute Auto 2500 /uL (1100-4500); Lymphocytes Percent Auto 34.2 % (25-40); Mean Corpuscular HGB Conc 34.8 % (30-36); Mean Corpuscular Hemoglobin 29.8 PG (26-34); Mean Corpuscular Volume 85.6 fL (80-100); Monocytes Absolute Auto 700 /uL (0-900); Monocytes Percent Auto 9.4 % (3-14); Neutrophils Absolute Auto 4000 /uL (1500-7000); Neutrophils Percent Auto 54.6 % (50-75); Platelet Count 219 X10^3/uL (150-400); Red Blood Cell Count 4.86 X10^6/uL (4.5-5.9); Red Cell Distribution Width 12.6 % (11.6-14.8); White Blood Cell Count 7.3 X10^3/uL (4.5-11.0)
[2019-10-18] MEDS: SODIUM CHLORIDE 0.9% 1,000 ML 1000 ML IV (21:39)
[2019-10-18 21:44] LABS: Alanine Aminotransferase 18 IU/L (<50); Albumin 4.8 g/dL (3.5-5.0); Albumin Globulin Ratio 1.5 (1.0-2.8); Alkaline Phosphatase 123 U/L (38-126); Aspartate Aminotransferase 22 IU/L (17-59); Blood Urea Nitrogen 9 mg/dL (9-20); Calcium 9.5 mg/dL (8.4-10.2); Carbon Dioxide 30 mmol/L (22-32); Chloride 94 mmol/L (98-107); Estimated Glomerular Filt Rate > 60.0 mL/min (>60); Globulin 3.2 g/dL (1.7-4.1); Glucose 89 mg/dL (70-100); HEMOLYSIS < 15 (0-50); Lipase 85 U/L (23-300); Potassium 3.7 mmol/L (3.4-5.1); Sodium 134 mmol/L (137-145)
[2019-10-19 00:03] VITALS: BP 124/77; PULSE 65; O2SAT 100
== END 2019-10-19 00:06 | disposition home or self-care (01) ==
PROVIDERS: Emergency Provider Emergency Medicine
DX: R10.13 Epigastric pain (principal)
CPT/HCPCS: 36415; 74177; 80053; 83690; 85025; 99285

== ENCOUNTER 2020-01-21 18:41 | Emergency (ER) | payer OTHER, SELFPAY ==
[2020-01-21 18:42] VITALS: BP 130/72; PULSE 71; RESP 18; TEMP 36.6; O2SAT 100
--- NOTE | 2020-01-21 18:54 | DI.CT.S_ITS ---
PROCEDURE: CT ABDOMEN PELVIS W CON INDICATIONS: RLQ pain, suspect appy, IV contrast only. TECHNIQUE: After the administration of intravenous contrast, 5 mm thick sections acquired from the diaphragm to the symphysis. 5 mm coronal and sagittal reformats were acquired. For radiation dose reduction, the following was used: automated exposure control, adjustment of mA and/or kV according to patient size. COMPARISON: [facility], CT, CT ABDOMEN PELVIS W CON, 10/18/2019, 21:38. FINDINGS: Image quality: Excellent. ABDOMEN: Lung bases: Lung bases are clear. Heart size is normal. Solid organs: Liver is normal in size and enhancement. Gallbladder is unremarkable. Biliary system is non dilated. Pancreas enhances normally. Spleen is normal in size and enhancement. No adrenal nodules. Kidneys demonstrate normal size and enhancement, without hydronephrosis. Peritoneum and bowel: A normal appendix is identified. However, there is a cecal diverticulum with mild thickening of the wall of the cecum and a small amount of fluid and inflammation adjacent to the diverticulum. Findings are suspicious for acute cecal diverticulitis. No free air and no abscess cavity. Nodes and vessels: No retroperitoneal or mesenteric adenopathy by size criteria. Aorta and inferior vena cava are normal in size. Miscellaneous: No ventral hernias. PELVIS: Genitourinary: Bladder wall thickness is normal. Miscellaneous: No inguinal hernias or adenopathy. Bones: No suspicious bony lesions. No vertebral body compression fractures. IMPRESSION: 1. Normal appendix. No evidence acute appendicitis. 2. Probable mild, non-complicated cecal diverticulitis. Dictated by: Jonny Dubois M.D. on 01/21/2020 at 20:00 Approved by: Jonny Dubois M.D. on 01/21/2020 at 20:03
[2020-01-21] MEDS: ONDANSETRON 4 MG/2 ML INJ IV (19:03)
[2020-01-21] MEDS: KETOROLAC 60 MG/2 ML VIAL 30 MG IV (19:04)
[2020-01-21] MEDS: SODIUM CHLORIDE 0.9% 1,000 ML 1000 ML IV (19:04)
[2020-01-21 19:09] LABS: Add Manual Diff / Slide Review NO; Basophils Absolute Auto 100 /uL (0-100); Basophils Percent Auto 0.5 % (0-2); Eosinophils Absolute Auto 200 /uL (0-450); Eosinophils Percent Auto 1.8 % (2-4); Hematocrit 41.4 % (41-53); Hemoglobin 14.3 g/dL (13.5-17.5); Lymphocytes Absolute Auto 3200 /uL (1100-4500); Lymphocytes Percent Auto 27.6 % (25-40); Mean Corpuscular HGB Conc 34.5 % (30-36); Mean Corpuscular Hemoglobin 29.8 PG (26-34); Mean Corpuscular Volume 86.4 fL (80-100); Monocytes Absolute Auto 900 /uL (0-900); Monocytes Percent Auto 7.7 % (3-14); Neutrophils Absolute Auto 7300 /uL (1500-7000); Neutrophils Percent Auto 62.4 % (50-75); Platelet Count 204 X10^3/uL (150-400); Red Blood Cell Count 4.79 X10^6/uL (4.5-5.9); Red Cell Distribution Width 13.1 % (11.6-14.8); White Blood Cell Count 11.7 X10^3/uL (4.5-11.0)
[2020-01-21 19:13] LABS: Prothrombin Time 11.4 SECONDS (10.1-12.7)
[2020-01-21 19:16] LABS: PTT Partial Thromboplastin Tim 28 SECONDS (26.4-36.2)
[2020-01-21 19:17] LABS: Alanine Aminotransferase 21 IU/L (<50); Albumin 4.9 g/dL (3.5-5.0); Albumin Globulin Ratio 1.4 (1.0-2.8); Alkaline Phosphatase 171 U/L (38-126); Aspartate Aminotransferase 29 IU/L (17-59); BUN Creatinine Ratio 23.2 (6-22); Bilirubin Total 1.5 mg/dL (0.2-1.3); Blood Urea Nitrogen 22 mg/dL (9-20); Calcium 9.6 mg/dL (8.4-10.2); Carbon Dioxide 30 mmol/L (22-32); Chloride 100 mmol/L (98-107); Estimated Glomerular Filt Rate > 60.0 mL/min (>60); Globulin 3.4 g/dL (1.7-4.1); Glucose 95 mg/dL (70-100); HEMOLYSIS 26 (0-50); Lipase 124 U/L (23-300); Potassium 3.6 mmol/L (3.4-5.1); Sodium 139 mmol/L (137-145); Total Protein 8.3 g/dL (6.3-8.2)
--- NOTE | 2020-01-21 19:26 | ED.ABDPAIN ---
HPI - Abdominal Pain <RENEE Greenberg - Last Filed: 01/21/20 21:29> General Chief Complaint: Abdominal Pain Stated Complaint: RIGHT SIDE LOWER PAIN Source: patient Mode of arrival: Ambulatory Limitations: no limitations History of Present Illness HPI narrative: This is a 34 year male, nonsmoker, who presents to ED with right lower quadrant discomfort which started about 4-5 hours prior coming into ED tonight. Patient reports no fever, chills, nausea at this time. Pain worse with movement, coughing, laughing, or walking. Patient had last bowel movement this morning which was normal for him without constipation or diarrhea. He had small bites to eat at 6:30 p.m. and last sips of fluids taken at 5:00 p.m. today. Patient denies urinary urgency, frequency, dysuria. Patient denies any previous history of abdominal surgeries. Related Data Home Medications Medication Instructions Recorded Confirmed pantoprazole 20 mg PO DAILY 10/18/19 01/21/20 Previous Rx's Medication Instructions Recorded amoxicillin-pot clavulanate 1 tab PO TID 7 Days #21 tab 01/21/20 Allergies Allergy/AdvReac Type Severity Reaction Status Date / Time No Known Drug Allergies Allergy Verified 01/21/20 18:45 Review of Systems <RENEE Greenberg - Last Filed: 01/21/20 21:29> Review of Systems Narrative: General: Denies fever, chills, fatigue, malaise, sweats. HEENT: Denies sinus pain, ear pain, sore throat, difficulty swallowing, dizziness. Respiratory: Denies dyspnea, cough, wheezing, hemoptysis, sputum. Cardiovascular: Denies chest pain, palpitations, orthopnea, edema. Gastrointestinal: See HPI : Denies dysuria, frequency, incontinence, hematuria, urinary retention. Musculoskeletal: Denies weakness, joint pain or bony pain. Skin: Denies rash, skin lesions, or other. Neurologic: Denies weakness, headache, numbness, change in speech, confusion, seizures, incoordination. Psychiatric: No concerning psychosocial issues. 12-point review of systems is negative except for those stated above. Patient History <RENEE Greenberg Last Filed: 01/21/20 21:29> Medical History GERD (gastroesophageal reflux disease) (Acute) Patient denies medical problems (Acute) Family History Mother Parkinson disease Social History Smoking Status: Never smoker Smoking Status: Never smoker alcohol intake frequency: a few times a month Substance Use Type: does not use Exam <RENEE Greenberg - Last Filed: 01/21/20 21:29> Narrative Exam Narrative: GEN: Alert, oriented x 3, well appearing and nourished, and in no acute distress. Head: Normal cephalic, atraumatic. No scalp or temporal tenderness, palpable mass or rash. EYES: Pupils are equal, round, and reactive to light and accommodation. Extraocular muscles are intact bilaterally. There is no subconjunctival hemorrhage, exudate and sclera non-icteric. ENT: Bilateral auditory canals and tympanic membranes clear. Hearing grossly intact. Nose without bleeding, purulent discharge or deviation. Facial sinuses nontender to palpate. Mucous membrane moist, no mucosal lesion. Throat without erythema, tonsillar hypertrophy or exudate. Uvula in midline, airway patent. Neck: Trachea in midline. No JVD, non-tender without lymphadenopathy. No masses or thyroid megaly. Supple, non-tender and no meningeal signs. CARDIAC: Normal regular rate and rhythm without murmurs, gallops, or rubs. No chest wall tenderness. No peripheral edema, cyanosis or pallor. Capillary refill is less than 2 seconds. RESPIRATORY: Lungs are clear to auscultate bilaterally. No cough, wheezes, rales, or rhonchi. No stridor, respiratory distress, increase work of breathing, or accessary muscle used. ABD: Abdomen soft and non-distended. Tender to palpate in right lower quadrant without rebound tenderness or guarding. Bowel sounds are normal in all 4 quadrants. There is no palpable masses or organomegaly. EXT: Full painless ROM of all extremities with no loss of sensation, strength, effusion or edema. SKIN: Warm, dry, normal color for patient. No erythema, lesions or rash over visible areas. BACK: Nontender without deformity or crepitance. No flank tenderness. NEUROLOGICAL: Alert and oriented to place, time and person. Sensation and motor function intact bilaterally. No facial droops, dysphasia. PSYCHIATRIC: Good judgement and reason, without hallucinations, abnormal affect or abnormal behaviors during the examination. Initial Vital Signs Initial Vital Signs: Vital Signs Temperature 97.8 F 01/21/20 18:42 Pulse Rate 71 01/21/20 18:42 Respiratory Rate 18 01/21/20 18:42 Blood Pressure 130/72 01/21/20 18:42 Pulse Oximetry 100 01/21/20 18:42 <Rahul Olivarez DO - Last Filed: 01/21/20 21:31> Initial Vital Signs Initial Vital Signs: Vital Signs Temperature 97.8 F 01/21/20 18:42 Pulse Rate 71 01/21/20 18:42 Respiratory Rate 18 01/21/20 18:42 Blood Pressure 130/72 01/21/20 18:42 Pulse Oximetry 100 01/21/20 18:42 Scores <RENEE Greenberg - Last Filed: 01/21/20 21:29> GCS Pal coma scale eye opening: Spontaneous Pal coma scale verbal response: Orientated Pal coma scale motor response: Obey commands Pal coma scale total score: 15 Course <RENEE Greenberg - Last Filed: 01/21/20 21:29> Orders Ordered: ED Orders 01/21/20 18:52 Complete Blood Count AUTO DIFF Stat Comprehensive Metabolic Panel Stat Lipase Stat Partial Thromboplastin Time Stat Prothrombin Time INR Stat 01/21/20 18:54 CT abdomen pelvis w con Stat Discontinued Medications Amoxicillin/Clavulanate Potassium (Augmentin 875-125 Mg) 1 tab PO NOW ONE Stop: 01/21/20 20:39 Last Admin: 01/21/20 21:12 Dose: 1 tab Documented by: EVELYNE Sodium Chloride (Normal Saline 0.9%) 1,000 mls @ 1,000 mls/hr IV BOLUS ONE Stop: 01/21/20 19:53 Last Infusion: 01/21/20 20:10 Dose: 0 mls/hr Documented by: Admin: 01/21/20 19:04 Dose: 1,000 mls/hr Documented by: NELDA Ketorolac Tromethamine (Toradol) 30 mg IV NOW ONE Stop: 03/13/20 18:55 Last Admin: 01/21/20 19:04 Dose: 30 mg Documented by: NELDA Ondansetron HCl (Zofran) 4 mg IV NOW ONE Stop: 01/21/20 18:55 Last Admin: 01/21/20 19:03 Dose: 4 mg Documented by: NELDA Tramadol HCl (Ultram 50mg Prepack) 1 bottle MISC SEEINSTR ONE Stop: 01/21/20 20:39 Last Admin: 01/21/20 21:13 Dose: 1 bottle Documented by: EVELYNE Vital Signs Vital signs: Vital Signs - 8 hr 01/21/20 18:42 01/21/20 21:10 Temperature 97.8 F Pulse Rate 71 70 Respiratory Rate 18 16 Blood Pressure 130/72 Blood Pressure [Left Arm] 114/60 Pulse Oximetry 100 99 <Rahul Olivarez DO - Last Filed: 01/21/20 21:31> Orders Ordered: ED Orders 01/21/20 18:52 Complete Blood Count AUTO DIFF Stat Comprehensive Metabolic Panel Stat Lipase Stat Partial Thromboplastin Time Stat Prothrombin Time INR Stat 01/21/20 18:54 CT abdomen pelvis w con Stat Discontinued Medications Amoxicillin/Clavulanate Potassium (Augmentin 875-125 Mg) 1 tab PO NOW ONE Stop: 01/21/20 20:39 Last Admin: 01/21/20 21:12 Dose: 1 tab Documented by: EVELYNE Sodium Chloride (Normal Saline 0.9%) 1,000 mls @ 1,000 mls/hr IV BOLUS ONE Stop: 01/21/20 19:53 Last Infusion: 01/21/20 20:10 Dose: 0 mls/hr Documented by: Admin: 01/21/20 19:04 Dose: 1,000 mls/hr Documented by: NELDA Ketorolac Tromethamine (Toradol) 30 mg IV NOW ONE Stop: 01/21/20 18:55 Last Admin: 01/21/20 19:04 Dose: 30 mg Documented by: NELDA Ondansetron HCl (Zofran) 4 mg IV NOW ONE Stop: 01/21/20 18:55 Last Admin: 01/21/20 19:03 Dose: 4 mg Documented by: NELDA Tramadol HCl (Ultram 50mg Prepack) 1 bottle MISC SEEINSTR ONE Stop: 01/21/20 20:39 Last Admin: 01/21/20 21:13 Dose: 1 bottle Documented by: EVELYNE Vital Signs Vital signs: Vital Signs - 8 hr 01/21/20 18:42 01/21/20 21:10 Temperature 97.8 F Pulse Rate 71 70 Respiratory Rate 18 16 Blood Pressure 130/72 Blood Pressure [Left Arm] 114/60 Pulse Oximetry 100 99 MDM - Abdominal Pain <Donte Bowman-JonathanRENEE cam - Last Filed: 01/21/20 21:29> Differential Diagnosis Differential diagnosis: Likely abdominal pain, acute appendicitis, calculus of kidney and diverticulitis Medical Records Attestation: I reviewed the patient's medical records. Lab Data Attestation: I reviewed the patient's lab results. Result diagrams: 01/21/20 18:52 01/21/20 18:52 Labs: Lab Results 01/21/20 01/21/20 01/21/20 Range/Units 18:52 18:52 18:52 WBC 11.7 H (4.5-11.0) X10^3/uL RBC 4.79 (4.5-5.9) X10^6/uL Hgb 14.3 (13.5-17.5) g/dL Hct 41.4 (41-53) % MCV 86.4 (80-100) fL MCH 29.8 (26-34) PG MCHC 34.5 (30-36) % RDW 13.1 (11.6-14.8) % Plt Count 204 (150-400) X10^3/uL Neut % (Auto) 62.4 (50-75) % Lymph % (Auto) 27.6 (25-40) % [place] % (Auto) 7.7 (3-14) % Eos % (Auto) 1.8 L (2-4) % Baso % (Auto) 0.5 (0-2) % Neut # (Auto) 7300 H (4552-9304) /uL Lymph # (Auto) 3200 (3546-5339) /uL [place] # (Auto) 900 (0-900) /uL Eos # (Auto) 200 (0-450) /uL Baso # (Auto) 100 (0-100) /uL PT 11.4 (10.1-12.7) SECONDS INR 1.0 (0.9-1.3) APTT 28 (26.4-36.2) SECONDS Sodium 139 (137-145) mmol/L Potassium 3.6 (3.4-5.1) mmol/L Chloride 100 (98-107) mmol/L Carbon Dioxide 30 (22-32) mmol/L BUN 22 H (9-20) mg/dL Creatinine 0.95 (0.66-1.25) mg/dL Estimated GFR > 60.0 (>60) mL/min BUN/Creatinine Ratio 23.2 H (6-22) Glucose 95 (70-100) mg/dL Calcium 9.6 (8.4-10.2) mg/dL Total Bilirubin 1.5 H (0.2-1.3) mg/dL AST 29 (17-59) IU/L ALT 21 (<50) IU/L Alkaline Phosphatase 171 H (38-126) U/L Total Protein 8.3 H (6.3-8.2) g/dL Albumin 4.9 (3.5-5.0) g/dL Globulin 3.4 (1.7-4.1) g/dL Albumin/Globulin Ratio 1.4 (1.0-2.8) Lipase 124 (23-300) U/L Point of care testing: Urine Dip Bedside Urine Glucose Negative Bedside Urine Bilirubin - Negative Bedside Urine Ketone - Negative Urine Specific Humphreys 1.010 Bedside Urine Occult Blood - Negative Bedside Urine pH 7 Bedside Urine Protein - Negative Bedside Urine Urobilinogen - Negative Bedside Urine Nitrite - Negative Bedside Urine Leukocytes - Negative Esterase Imaging Data CT scan - abdomen/pelvis: Radiologist's Impression: [place] [address] CT Scan Report Signed Patient: Stephen Carty [facility]#: [id number] : 1985Acct:[id number] Age/Sex: 34 / MDate of Service: 01/21/20 Loc: ED Accession Number: [id number] Procedure: CT abdomen pelvis w con Ordering Provider: Donte Bower PROCEDURE: CT ABDOMEN PELVIS W CON INDICATIONS: RLQ pain, suspect appy, IV contrast only. TECHNIQUE: After the administration of intravenous contrast, 5 mm thick sections acquired from the diaphragm to the symphysis. 5 mm coronal and sagittal reformats were acquired. For radiation dose reduction, the following was used: automated exposure control, adjustment of mA and/or kV according to patient size. COMPARISON: [facility], CT, CT ABDOMEN PELVIS W CON, 10/18/2019, 21:38. FINDINGS: Image quality: Excellent. ABDOMEN: Lung bases: Lung bases are clear. Heart size is normal. Solid organs: Liver is normal in size and enhancement. Gallbladder is unremarkable. Biliary system is non dilated. Pancreas enhances normally. Spleen is normal in size and enhancement. No adrenal nodules. Kidneys demonstrate normal size and enhancement, without hydronephrosis. Peritoneum and bowel: A normal appendix is identified. However, there is a cecal diverticulum with mild thickening of the wall of the cecum and a small amount of fluid and inflammation adjacent to the diverticulum. Findings are suspicious for acute cecal diverticulitis. No free air and no abscess cavity. Nodes and vessels: No retroperitoneal or mesenteric adenopathy by size criteria. Aorta and inferior vena cava are normal in size. Miscellaneous: No ventral hernias. PELVIS: Genitourinary: Bladder wall thickness is normal. Miscellaneous: No inguinal hernias or adenopathy. Bones: No suspicious bony lesions. No vertebral body compression fractures. IMPRESSION: 1. Normal appendix. No evidence acute appendicitis. 2. Probable mild, non-complicated cecal diverticulitis. Dictated by: Jonny Dubois M.D. on 01/21/2020 at 20:00 Approved by: Jonny Dubois M.D. on 01/21/2020 at 20:03 [facility] Narrative Medical decision making narrative: This is a 34-year-old male who presents to ED with right lower quadrant pain which is worse with movement, coughing, and walking. Patient denies constitutional symptoms. CBC indicates mild leukocytosis of 11.7 with a neutrophil of 7300. Chemistry test indicates mild dehydration and increased total bilirubin of 1.5, alkaline phosphatase of 171. Physical exam appreciated mild tenderness to palpate in the right lower quadrant without significant rebound tenderness and soft abdomen. Normal saline, medicated with IV Toradol which improved the discomfort. UA was negative for infection or blood. Patient was afebrile with stable vital signs. CT of abdomen/pelvis indicates possible mild, non complicated cecal diverticulitis based on mild thickening of the wall of the cecum and small amount of fluid and inflammation as send the diverticulum without appendicitis. There was no free air and no abscess cavity appreciated. Kidneys are in normal size and enhancement without hydronephrosis. Patient was medicated with Augmentin prior living ED and discharged to home with remaining dose of t.i.d. and 7 day course. Patient discharged to home with prepack tramadol for severe pain and discussed narcotic medication precautions. Advised to take [id number] Tylenol and or Motrin as needed for discomfort and take clear liquids for 2 days and advanced said to bland something needs to digest. Return precautions were discussed with the patient and patient verbalized the understanding and in agreement with treatment plan. <Rahul Olivarez, DO - Last Filed: 01/21/20 21:31> Lab Data Labs: Lab Results 01/21/20 01/21/20 01/21/20 Range/Units 18:52 18:52 18:52 WBC 11.7 H (4.5-11.0) X10^3/uL RBC 4.79 (4.5-5.9) X10^6/uL Hgb 14.3 (13.5-17.5) g/dL Hct 41.4 (41-53) % MCV 86.4 (80-100) fL MCH 29.8 (26-34) PG MCHC 34.5 (30-36) % RDW 13.1 (11.6-14.8) % Plt Count 204 (150-400) X10^3/uL Neut % (Auto) 62.4 (50-75) % Lymph % (Auto) 27.6 (25-40) % [place] % (Auto) 7.7 (3-14) % Eos % (Auto) 1.8 L (2-4) % Baso % (Auto) 0.5 (0-2) % Neut # (Auto) 7300 H (6811-0492) /uL Lymph # (Auto) 3200 (7979-6559) /uL [place] # (Auto) 900 (0-900) /uL Eos # (Auto) 200 (0-450) /uL Baso # (Auto) 100 (0-100) /uL PT 11.4 (10.1-12.7) SECONDS INR 1.0 (0.9-1.3) APTT 28 (26.4-36.2) SECONDS Sodium 139 (137-145) mmol/L Potassium 3.6 (3.4-5.1) mmol/L Chloride 100 (98-107) mmol/L Carbon Dioxide 30 (22-32) mmol/L BUN 22 H (9-20) mg/dL Creatinine 0.95 (0.66-1.25) mg/dL Estimated GFR > 60.0 (>60) mL/min BUN/Creatinine Ratio 23.2 H (6-22) Glucose 95 (70-100) mg/dL Calcium 9.6 (8.4-10.2) mg/dL Total Bilirubin 1.5 H (0.2-1.3) mg/dL AST 29 (17-59) IU/L ALT 21 (<50) IU/L Alkaline Phosphatase 171 H (38-126) U/L Total Protein 8.3 H (6.3-8.2) g/dL Albumin 4.9 (3.5-5.0) g/dL Globulin 3.4 (1.7-4.1) g/dL Albumin/Globulin Ratio 1.4 (1.0-2.8) Lipase 124 (23-300) U/L Point of care testing: Urine Dip Bedside Urine Glucose Negative Bedside Urine Bilirubin - Negative Bedside Urine Ketone - Negative Urine Specific Humphreys 1.010 Bedside Urine Occult Blood - Negative Bedside Urine pH 7 Bedside Urine Protein - Negative Bedside Urine Urobilinogen - Negative Bedside Urine Nitrite - Negative Bedside Urine Leukocytes - Negative Esterase Discharge Plan Departure Patient Disposition: Home Clinical Impression: Cecal diverticulitis Abdominal pain Qualifiers: Abdominal location: unspecified location Qualified Code(s): R10.9 - Unspecified abdominal pain Discharge Date/Time: 01/21/20 21:28 Instructions: DI for Diverticulitis, DI for Abdominal Pain-Adult Activity Restrictions/Additional Instructions: You have been diagnosed with [sickle diverticulitis and abdominal pain. You have mildly elevated WBC of 11.7 and chemistry indicates mild dehydration. You have mildly elevated alkaline phosphatase of 171 and bilirubin of 1.5. CT test of abdomen and pelvis indicates no appendicitis but probable mild non complicated cecal diverticulitis. You were hydrated with IV fluid, treated with IV Toradol, and antibiotic medication Augmentin in ED. ]. What to do: *Take your medications as directed. Please take [id number] Tylenol 650-1000 mg up to 4 times a day as needed for discomfort. Ibuprofen 400-600 mg 3 times a day with food for discomfort. Augmentin 3 times a day for next 7 days. Please stay on clear liquid diet for next 2 days. Advance your diet to soft and something bland after 2 days. *Follow up with your primary care provider in 2-3 days, call for an appointment. Let them know you were seen in the ED and that we asked you to be seen in follow up. *Return to ED if you have any new, worsening, or concerning symptoms, such as [chest pain, breathing difficulty, high fever, increasing pain, unable to tolerate fluids, fainting like episode, or any acute concerns]. Prescriptions: New amoxicillin-pot clavulanate 875-125 mg tablet 1 tab PO TID 7 Days Qty: 21 RF: 0 No Action pantoprazole 20 mg tablet,delayed release (DR/EC) 20 mg PO DAILY RF: 0 Referrals: [facility] [Outside] <Rahul Olivarez, DO - Last Filed: 01/21/20 21:31> Sign Out Provider Sign Out Attestation: Dr Olivarez Co-Sign Statement: I was available for consultation during this patient's emergency department visit. This chart is signed by myself for administrative purposes only. I did not have direct contact with this patient during this visit. They were seen independently by the APC.
[2020-01-21 21:10] VITALS: BP 114/60; PULSE 70; RESP 16; O2SAT 99
[2020-01-21] MEDS: AMOXICILLIN/CLAV 875/125 MG 1 TAB PO (21:12)
[2020-01-21] MEDS: TRAMADOL 50 MG PREPACK 1 BOTTLE MISC (21:13)
== END 2020-01-21 21:28 | disposition home or self-care (01) ==
PROVIDERS: Emergency Medicine; Emergency Provider Nurse Practitioner Family
DX: K57.12 Diverticulitis of small intestine without perforation or abscess without bleeding (principal); R10.9 Unspecified abdominal pain; D72.829 Elevated white blood cell count, unspecified
CPT/HCPCS: 36415; 74177; 80053; 81003; 83690; 85025; 85610; 85730; 96361; 96374; 96375; 99284; J1885; J2405; Q9967

== ENCOUNTER 2020-01-23 12:24 | Inpatient (IN) | payer OTHER, SELFPAY ==
[2020-01-23] VITALS (15 sets, daily range): BP systolic 99–137; BP diastolic 48–68; PULSE 75–118; RESP 13–24; TEMP 36.5–38.8; O2SAT 96–100; BMI 25.8
--- NOTE | 2020-01-23 | PATH_ITS ---
[facility] Accession Number: [id number] . 01 Material submitted: . appendix - APPENDIX . 02 Diagnosis: Appendix, Appendectomy: Acute appendicitis with serositis. No evidence of dysplasia or malignancy. [facility] 01/26/2020 1703 Local . 02 Electronically signed: . Conchita Turcios MD, Pathologist NPI- [id number] . 01 Gross description: . Received in formalin, labeled appendix, is an intact appendix (length-6.5 cm, diameter-0.7 cm) with araiza-viveros, smooth, shiny serosa and attached mesoappendix (up to 1.8 cm in depth). The resection margin is received crimped close. The lumen contains viveros-pink, solid, paste-like material. The wall is up to 0.2 cm thick. No nodules, masses or lesions are identified. The resection margin is inked blue. Section code: (A1) resection margin en face and four instruments sales representative serial sections; (A2) one-half of the bivalved tip. ([id number]) /MRV 01/25/2020 1534 Local . 02 Pathologist provided ICD-10: K35.80 . 02 CPT . 763174 Performed at: 01 [facility] [address], [place], [place] [id number] MD Roshan Ozuna MD Phone: [phone] Performed at: 02 [facility] [address] [place], [place] [id number] MD Conchita Turcios MD Phone: [phone]
[2020-01-23] MEDS: LACTATED RINGERS 816 ML IV (12:49)
[2020-01-23] MEDS: ONDANSETRON 4 MG/2 ML INJ IV (12:49)
[2020-01-23 12:51] LABS: Add Manual Diff / Slide Review NO; Basophils Absolute Auto 100 /uL (0-100); Basophils Percent Auto 0.3 % (0-2); Eosinophils Absolute Auto 0 /uL (0-450); Hematocrit 41.3 % (41-53); Hemoglobin 14.3 g/dL (13.5-17.5); Lymphocytes Absolute Auto 900 /uL (1100-4500); Lymphocytes Percent Auto 5.6 % (25-40); Mean Corpuscular HGB Conc 34.6 % (30-36); Mean Corpuscular Hemoglobin 29.8 PG (26-34); Mean Corpuscular Volume 86.1 fL (80-100); Monocytes Absolute Auto 1100 /uL (0-900); Neutrophils Absolute Auto 13900 /uL (1500-7000); Neutrophils Percent Auto 87.1 % (50-75); Platelet Count 203 X10^3/uL (150-400); Red Cell Distribution Width 12.8 % (11.6-14.8)
[2020-01-23 12:57] LABS: INR 1.2 (0.9-1.3)
[2020-01-23 13:00] LABS: PTT Partial Thromboplastin Tim 30 SECONDS (26.4-36.2)
[2020-01-23 13:01] LABS: Alanine Aminotransferase 18 IU/L (<50); Albumin 4.7 g/dL (3.5-5.0); Albumin Globulin Ratio 1.3 (1.0-2.8); Alkaline Phosphatase 140 U/L (38-126); Aspartate Aminotransferase 23 IU/L (17-59); BUN Creatinine Ratio 10.8 (6-22); Bilirubin Total 4.6 mg/dL (0.2-1.3); Blood Urea Nitrogen 10 mg/dL (9-20); Calcium 9.4 mg/dL (8.4-10.2); Carbon Dioxide 28 mmol/L (22-32); Chloride 98 mmol/L (98-107); Estimated Glomerular Filt Rate > 60.0 mL/min (>60); Globulin 3.6 g/dL (1.7-4.1); Glucose 105 mg/dL (70-100); HEMOLYSIS < 15 (0-50); Potassium 3.7 mmol/L (3.4-5.1); Sodium 137 mmol/L (137-145); Total Protein 8.3 g/dL (6.3-8.2)
--- NOTE | 2020-01-23 13:01 | DI.CT.S_ITS ---
PROCEDURE: CT ABDOMEN PELVIS W CON INDICATIONS: abd pain, increased wbc, r/o perf ceccum, hx ceccal colitis TECHNIQUE: After the administration of intravenous contrast, 5 mm thick sections acquired from the diaphragm to the symphysis. 5 mm coronal and sagittal reformats were acquired. For radiation dose reduction, the following was used: automated exposure control, adjustment of mA and/or kV according to patient size. COMPARISON: [facility], CT, CT ABDOMEN PELVIS W CON, 01/21/2020, 19:22. [facility], CT, CT ABDOMEN PELVIS W CON, 10/18/2019, 21:38. FINDINGS: Image quality: Excellent. ABDOMEN: Lung bases: Lung bases are clear. Heart size is normal. Solid organs: Liver is normal in size and enhancement. Gallbladder demonstrates no significant abnormality, although vicarious excretion of contrast can be seen within the gallbladder lumen. Biliary system is non dilated. Pancreas enhances normally. Spleen is normal in size and enhancement. No adrenal nodules. Kidneys demonstrate normal size and enhancement, without hydronephrosis. Peritoneum and bowel: Focal wall thickening and surrounding inflammatory change can be involving the cecum. There is a small potential extraluminal gas seen, as is 2 image 59 and on series 4 image 23. No loculated fluid collections are seen to suggest abscess. The adjacent appendix is within normal limits. No dilated loops of small bowel are seen. Nodes and vessels: No retroperitoneal or mesenteric adenopathy by size criteria. Aorta and inferior vena cava are normal in size. Miscellaneous: No ventral hernias. PELVIS: Genitourinary: Bladder wall thickness is normal. Miscellaneous: No inguinal hernias or adenopathy. Bones: No suspicious bony lesions. No vertebral body compression fractures. IMPRESSION: A small amount of extraluminal gas can be seen adjacent to the cecum, which is consistent with a small perforation at this site. Recommend surgical consultation. Normal appendix. Note: Findings and recommendations discussed by telephone with RENEE Greenberg at 1307 hrs. [place] time on the day of dictation. Dictated by: Zay Johnson M.D. on 01/23/2020 at 13:04 Approved by: Zay Johnson M.D. on 01/23/2020 at 13:09
--- NOTE | 2020-01-23 13:16 | ED.ABDPAIN ---
HPI - Abdominal Pain <RENEE Greenberg - Last Filed: 01/23/20 16:34> General Chief Complaint: Fever Stated Complaint: Diverticulitis worsening, vomiting, dizzy, pain Time Seen by Provider: 01/23/20 12:59 Source: patient and family Mode of arrival: Wheelchair Limitations: no limitations History of Present Illness HPI narrative: This is a 34 year male, nonsmoker, who presents to ED with increasing right lower quadrant pain with chills, nausea and vomiting since last night. Patient was seen in ED right lower quadrant pain and nausea and he was diagnosed with diverticulitis of sick come and discharged to home with Augmentin t.i.d. dose for 7 day course. Patient reports his symptoms became more since last night and now he is having nausea and vomiting as well with taking antibiotic medications and had taken tramadol this morning at 9:00 p.m.. Patient reports right lower quadrant pain increases with movements and walking. Patient reports his pain is like cramping in character and states severity as 5 to 9/10. This has been causing his migraine headache as well. He was not aware he had fever at home until coming into ED. He has been on liquid diet since he was discharged to home. Patient reports had hard and constipated stool last night but had diarrhea this morning without blood. Patient has been having increasing GI problems and seeing GI specialist since September without significant findings so far. He is currently taking pantoprazole for his GI symptoms. Last PO intake last night-Jello. Related Data Home Medications Medication Instructions Recorded Confirmed pantoprazole 20 mg PO DAILY 10/18/19 01/21/20 Previous Rx's Medication Instructions Recorded amoxicillin-pot clavulanate 1 tab PO TID 7 Days #21 tab 01/21/20 Allergies Allergy/AdvReac Type Severity Reaction Status Date / Time No Known Drug Allergies Allergy Verified 01/21/20 18:45 Review of Systems <RENEE Greenberg - Last Filed: 01/23/20 16:34> Review of Systems Narrative: General: Denies fever, (+) chills, fatigue, malaise, sweats. HEENT: Denies sinus pain, ear pain, sore throat, difficulty swallowing, dizziness. Respiratory: Denies dyspnea, cough, wheezing, hemoptysis, sputum. Cardiovascular: Denies chest pain, palpitations, orthopnea, edema. Gastrointestinal: See HPI : Denies dysuria, frequency, incontinence, hematuria, urinary retention. Musculoskeletal: Denies weakness, joint pain or bony pain. Skin: Denies rash, skin lesions, or other. Neurologic: Denies weakness, headache, numbness, change in speech, confusion, seizures, incoordination. Psychiatric: No concerning psychosocial issues. 12-point review of systems is negative except for those stated above. Patient History <RENEE Greenberg - Last Filed: 01/23/20 16:34> Medical History GERD (gastroesophageal reflux disease) (Acute) Family History Mother Parkinson disease Social History household members: spouse and children Smoking Status: Never smoker alcohol intake: current Smoking Status: Never smoker alcohol intake frequency: a few times a month Substance Use Type: does not use Exam <RENEE Greenberg - Last Filed: 01/23/20 16:34> Narrative Exam Narrative: GEN: Alert, oriented x 3, illl appearing and nourished, and in no acute distress. Head: Normal cephalic, atraumatic. No scalp or temporal tenderness, palpable mass or rash. EYES: Pupils are equal, round, and reactive to light and accommodation. Extraocular muscles are intact bilaterally. There is no subconjunctival hemorrhage, exudate and sclera non-icteric. ENT: Bilateral auditory canals and tympanic membranes clear. Hearing grossly intact. Nose without bleeding, purulent discharge or deviation. Facial sinuses nontender to palpate. Mucous membrane moist, no mucosal lesion. Throat without erythema, tonsillar hypertrophy or exudate. Uvula in midline, airway patent. Neck: Trachea in midline. No JVD, non-tender without lymphadenopathy. No masses or thyroid megaly. Supple, non-tender and no meningeal signs. CARDIAC: Normal regular rate and rhythm without murmurs, gallops, or rubs. No chest wall tenderness. No peripheral edema, cyanosis or pallor. Capillary refill is less than 2 seconds. RESPIRATORY: Lungs are clear to auscultate bilaterally. No cough, wheezes, rales, or rhonchi. No stridor, respiratory distress, increase work of breathing, or accessary muscle used. ABD: Abdomen soft, very tender to light palpation on right lower quadrant on McBurney's point. Positive psoas, obturator, Rovsing sign. Positive for guarding or rebound tenderness to palpate. Bowel sounds are normal in all 4 quadrants. There is no palpable masses or organomegaly. EXT: Full painless ROM of all extremities with no loss of sensation, strength, effusion or edema. SKIN: Warm, dry, slightly pale color for patient. No erythema, lesions or rash over visible areas. BACK: Nontender without deformity or crepitance. No flank tenderness. NEUROLOGICAL: Alert and oriented to place, time and person. Sensation and motor function intact bilaterally. No facial droops, dysphasia. PSYCHIATRIC: Good judgement and reason, without hallucinations, abnormal affect or abnormal behaviors during the examination. Initial Vital Signs Initial Vital Signs: Vital Signs Temperature 101 F H 01/23/20 12:31 Pulse Rate 118 H 01/23/20 12:31 Respiratory Rate 24 01/23/20 12:31 Blood Pressure 137/67 01/23/20 12:31 Pulse Oximetry 100 01/23/20 12:31 <Prasanna Vargas MD - Last Filed: 01/23/20 16:37> Initial Vital Signs Initial Vital Signs: Vital Signs Temperature 101 F H 01/23/20 12:31 Pulse Rate 118 H 01/23/20 12:31 Respiratory Rate 24 01/23/20 12:31 Blood Pressure 137/67 01/23/20 12:31 Pulse Oximetry 100 01/23/20 12:31 Scores <RENEE Greenberg - Last Filed: 01/23/20 16:34> GCS [place] coma scale eye opening: Spontaneous [place] coma scale verbal response: Orientated [place] coma scale motor response: Obey commands Pal coma scale total score: 15 Course <RENEE Greenberg - Last Filed: 01/23/20 16:34> Orders Ordered: ED Orders 01/23/20 12:39 Complete Blood Count AUTO DIFF Stat Comprehensive Metabolic Panel Stat Lactate (Lactic Acid) Stat Partial Thromboplastin Time Stat Procalcitonin Stat Prothrombin Time INR Stat 01/23/20 13:01 CT abdomen pelvis w con Stat 01/23/20 13:08 Blood Culture Stat Lactated Ringer's (Lactated Ringers) 1,000 mls @ 125 mls/hr IV CONT CALLIE Last Infusion: 01/23/20 16:02 Dose: 125 mls/hr Documented by: Infusion: 01/23/20 15:40 Dose: 125 mls/hr Documented by: Infusion: 01/23/20 15:10 Dose: 0 mls/hr Documented by: Admin: 01/23/20 14:19 Dose: 125 mls/hr Documented by: ITALO Discontinued Medications Lactated Ringer's (Lactated Ringers) 2,448 mls @ 816 mls/hr 30 ml/kg infuse over 3 hr (2448 ml) IV NOW ONE Stop: 01/23/20 15:32 Last Infusion: 01/23/20 14:10 Dose: 0 mls/hr Documented by: Admin: 01/23/20 12:49 Dose: 816 mls/hr Documented by: AIYANA Piperacillin/Tazobactam/Dextrose (Zosyn) 3.375 gm in 50 mls @ 100 mls/hr IV NOW ONE Stop: 01/23/20 15:17 Last Infusion: 01/23/20 15:39 Dose: 0 mls/hr Documented by: Admin: 01/23/20 15:09 Dose: 100 mls/hr Documented by: ITALO Metronidazole (Flagyl) 500 mg in 100 mls @ 100 mls/hr IV NOW ONE Stop: 01/23/20 15:47 Last Infusion: 01/23/20 16:05 Dose: 0 mls/hr Documented by: Infusion: 01/23/20 16:03 Dose: 100 mls/hr Documented by: Admin: 01/23/20 15:09 Dose: 100 mls/hr Documented by: ITALO Ketorolac Tromethamine (Toradol) 30 mg IV NOW ONE Stop: 01/23/20 14:54 Last Admin: 01/23/20 15:08 Dose: 30 mg Documented by: ITALO Ondansetron HCl (Zofran) 4 mg IV NOW ONE Stop: 01/23/20 12:43 Last Admin: 01/23/20 12:49 Dose: 4 mg Documented by: CSIEDLE Reevaluation(s) Reevaluation #1: Pain increasing with elevated temp of 101.8. Toradol ordered and will order PRN IV opioids for pain. Dr. Ornelas consulted and appreciated the recommendation and acceptance to Surg for continuation of care. IV antibiotic medications Zosyn and Flagyl have been ordered. Time: 14:56 Vital Signs Vital signs: Vital Signs - 8 hr 01/23/20 12:31 01/23/20 13:00 01/23/20 14:52 Temperature 101 F H 101.8 F H Pulse Rate 118 H 96 H 107 H Respiratory Rate 24 22 Blood Pressure 137/67 Blood Pressure [Right Arm] 124/64 134/67 Pulse Oximetry 100 98 100 01/23/20 15:22 Temperature Pulse Rate 104 H Respiratory Rate Blood Pressure Blood Pressure [Right Arm] 119/67 Pulse Oximetry 98 <Prasanna Vargas MD - Last Filed: 01/23/20 16:37> Orders Ordered: ED Orders 01/23/20 12:39 Complete Blood Count AUTO DIFF Stat Comprehensive Metabolic Panel Stat Lactate (Lactic Acid) Stat Partial Thromboplastin Time Stat Procalcitonin Stat Prothrombin Time INR Stat 01/23/20 13:01 CT abdomen pelvis w con Stat 01/23/20 13:08 Blood Culture Stat Lactated Ringer's (Lactated Ringers) 1,000 mls @ 125 mls/hr IV CONT CALLIE Last Infusion: 01/23/20 16:02 Dose: 125 mls/hr Documented by: Infusion: 01/23/20 15:40 Dose: 125 mls/hr Documented by: Infusion: 01/23/20 15:10 Dose: 0 mls/hr Documented by: Admin: 01/23/20 14:19 Dose: 125 mls/hr Documented by: ITALO Discontinued Medications Lactated Ringer's (Lactated Ringers) 2,448 mls @ 816 mls/hr 30 ml/kg infuse over 3 hr (2448 ml) IV NOW ONE Stop: 01/23/20 15:32 Last Infusion: 01/23/20 14:10 Dose: 0 mls/hr Documented by: Admin: 01/23/20 12:49 Dose: 816 mls/hr Documented by: AIYANA Piperacillin/Tazobactam/Dextrose (Zosyn) 3.375 gm in 50 mls @ 100 mls/hr IV NOW ONE Stop: 01/23/20 15:17 Last Infusion: 01/23/20 15:39 Dose: 0 mls/hr Documented by: Admin: 01/23/20 15:09 Dose: 100 mls/hr Documented by: ITALO Metronidazole (Flagyl) 500 mg in 100 mls @ 100 mls/hr IV NOW ONE Stop: 01/23/20 15:47 Last Infusion: 01/23/20 16:05 Dose: 0 mls/hr Documented by: Infusion: 01/23/20 16:03 Dose: 100 mls/hr Documented by: Admin: 01/23/20 15:09 Dose: 100 mls/hr Documented by: ITALO Ketorolac Tromethamine (Toradol) 30 mg IV NOW ONE Stop: 01/23/20 14:54 Last Admin: 01/23/20 15:08 Dose: 30 mg Documented by: ITALO Ondansetron HCl (Zofran) 4 mg IV NOW ONE Stop: 01/23/20 12:43 Last Admin: 01/23/20 12:49 Dose: 4 mg Documented by: AIYANA Vital Signs Vital signs: Vital Signs - 8 hr 01/23/20 12:31 01/23/20 13:00 01/23/20 14:52 Temperature 101 F H 101.8 F H Pulse Rate 118 H 96 H 107 H Respiratory Rate 24 22 Blood Pressure 137/67 Blood Pressure [Right Arm] 124/64 134/67 Pulse Oximetry 100 98 100 01/23/20 15:22 Temperature Pulse Rate 104 H Respiratory Rate Blood Pressure Blood Pressure [Right Arm] 119/67 Pulse Oximetry 98 MDM - Abdominal Pain <Donte RENEE Bower - Last Filed: 01/23/20 16:34> Differential Diagnosis Differential diagnosis: Likely abdominal pain, acute appendicitis, diverticulitis and other (Perforation of cecum) Medical Records Attestation: I reviewed the patient's medical records. Lab Data Attestation: I reviewed the patient's lab results. Result diagrams: 01/23/20 12:39 01/23/20 12:39 Labs: Lab Results 01/23/20 01/23/20 01/23/20 Range/Units 12:39 12:39 12:39 WBC 16.0 H (4.5-11.0) X10^3/uL RBC 4.80 (4.5-5.9) X10^6/uL Hgb 14.3 (13.5-17.5) g/dL Hct 41.3 (41-53) % MCV 86.1 (80-100) fL MCH 29.8 (26-34) PG MCHC 34.6 (30-36) % RDW 12.8 (11.6-14.8) % Plt Count 203 (150-400) X10^3/uL Neut % (Auto) 87.1 H D (50-75) % Lymph % (Auto) 5.6 L D (25-40) % Craven % (Auto) 7.0 (3-14) % Eos % (Auto) 0.0 L (2-4) % Baso % (Auto) 0.3 (0-2) % Neut # (Auto) 27179 H (4433-1270) /uL Lymph # (Auto) 900 L (7002-3173) /uL Craven # (Auto) 1100 H (0-900) /uL Eos # (Auto) 0 (0-450) /uL Baso # (Auto) 100 (0-100) /uL PT (10.1-12.7) SECONDS INR (0.9-1.3) APTT (26.4-36.2) SECONDS Sodium 137 (137-145) mmol/L Potassium 3.7 (3.4-5.1) mmol/L Chloride 98 (98-107) mmol/L Carbon Dioxide 28 (22-32) mmol/L BUN 10 (9-20) mg/dL Creatinine 0.93 (0.66-1.25) mg/dL Estimated GFR > 60.0 (>60) mL/min BUN/Creatinine Ratio 10.8 (6-22) Glucose 105 H (70-100) mg/dL Lactate (0.7-2.1) mmol/L Calcium 9.4 (8.4-10.2) mg/dL Total Bilirubin 4.6 H (0.2-1.3) mg/dL AST 23 (17-59) IU/L ALT 18 (<50) IU/L Alkaline Phosphatase 140 H (38-126) U/L Total Protein 8.3 H (6.3-8.2) g/dL Albumin 4.7 (3.5-5.0) g/dL Globulin 3.6 (1.7-4.1) g/dL Albumin/Globulin Ratio 1.3 (1.0-2.8) Procalcitonin 0.05 (<0.5) ng/mL 01/23/20 01/23/20 Range/Units 12:39 12:39 WBC (4.5-11.0) X10^3/uL RBC (4.5-5.9) X10^6/uL Hgb (13.5-17.5) g/dL Hct (41-53) % MCV (80-100) fL MCH (26-34) PG MCHC (30-36) % RDW (11.6-14.8) % Plt Count (150-400) X10^3/uL Neut % (Auto) (50-75) % Lymph % (Auto) (25-40) % Craven % (Auto) (3-14) % Eos % (Auto) (2-4) % Baso % (Auto) (0-2) % Neut # (Auto) (7753-2046) /uL Lymph # (Auto) (0831-0239) /uL Craven # (Auto) (0-900) /uL Eos # (Auto) (0-450) /uL Baso # (Auto) (0-100) /uL PT 14.0 H (10.1-12.7) SECONDS INR 1.2 (0.9-1.3) APTT 30 D (26.4-36.2) SECONDS Sodium (137-145) mmol/L Potassium (3.4-5.1) mmol/L Chloride (98-107) mmol/L Carbon Dioxide (22-32) mmol/L BUN (9-20) mg/dL Creatinine (0.66-1.25) mg/dL Estimated GFR (>60) mL/min BUN/Creatinine Ratio (6-22) Glucose (70-100) mg/dL Lactate 1.0 (0.7-2.1) mmol/L Calcium (8.4-10.2) mg/dL Total Bilirubin (0.2-1.3) mg/dL AST (17-59) IU/L ALT (<50) IU/L Alkaline Phosphatase (38-126) U/L Total Protein (6.3-8.2) g/dL Albumin (3.5-5.0) g/dL Globulin (1.7-4.1) g/dL Albumin/Globulin Ratio (1.0-2.8) Procalcitonin (<0.5) ng/mL Imaging Data CT scan - abdomen/pelvis: Radiologist's Impression: [address] [address] [address] Scan Report Signed Patient: Stephen Carty [facility]#: [id number] : 1985Acct:[id number] Age/Sex: 34 / MDate of Service: 01/23/20 Loc: ED Accession Number: [id number] Procedure: CT abdomen pelvis w con Ordering Provider: Donte Bower PROCEDURE: CT ABDOMEN PELVIS W CON INDICATIONS: abd pain, increased wbc, r/o perf ceccum, hx ceccal colitis TECHNIQUE: After the administration of intravenous contrast, 5 mm thick sections acquired from the diaphragm to the symphysis. 5 mm coronal and sagittal reformats were acquired. For radiation dose reduction, the following was used: automated exposure control, adjustment of mA and/or kV according to patient size. COMPARISON: [facility], CT, CT ABDOMEN PELVIS W CON, 01/21/2020, 19:22. [facility], CT, CT ABDOMEN PELVIS W CON, 10/18/2019, 21:38. FINDINGS: Image quality: Excellent. ABDOMEN: Lung bases: Lung bases are clear. Heart size is normal. Solid organs: Liver is normal in size and enhancement. Gallbladder demonstrates no significant abnormality, although vicarious excretion of contrast can be seen within the gallbladder lumen. Biliary system is non dilated. Pancreas enhances normally. Spleen is normal in size and enhancement. No adrenal nodules. Kidneys demonstrate normal size and enhancement, without hydronephrosis. Peritoneum and bowel: Focal wall thickening and surrounding inflammatory change can be involving the cecum. There is a small potential extraluminal gas seen, as is 2 image 59 and on series 4 image 23. No loculated fluid collections are seen to suggest abscess. The adjacent appendix is within normal limits. No dilated loops of small bowel are seen. Nodes and vessels: No retroperitoneal or mesenteric adenopathy by size criteria. Aorta and inferior vena cava are normal in size. Miscellaneous: No ventral hernias. PELVIS: Genitourinary: Bladder wall thickness is normal. Miscellaneous: No inguinal hernias or adenopathy. Bones: No suspicious bony lesions. No vertebral body compression fractures. IMPRESSION: A small amount of extraluminal gas can be seen adjacent to the cecum, which is consistent with a small perforation at this site. Recommend surgical consultation. Normal appendix. Note: Findings and recommendations discussed by telephone with RENEE Greenberg at 1307 hrs. [place] time on the day of dictation. Dictated by: Zay Johnson M.D. on 01/23/2020 at 13:04 Approved by: Zay Johnson M.D. on 01/23/2020 at 13:09 [facility] Narrative Medical decision making narrative: This is a 34 year male who return to ED after he was seen 2 nights ago and discharged to home with cecal diverticulitis per CT of abdomen/pelvis test. Patient reports he has chills and increasing abdominal pain in right lower quadrant since last night. He has been taking Augmentin t.i.d. dose since he was discharged to ED. physical exam appreciated very tender to palpate in right lower quadrant with peritoneal signs such as psoas, obturator, Rovsing with soft abdomen and active bowel sounds in 4 quadrant. Patient is afebrile of 101 with tachycardia when he arrived to ED. WBC has increased to 16 (11.7 2 days ago) with increased neutrophils of 87.1 (62.4). Normal lactate and procalcitonin level today. Patient has slightly increased Alk Phosphatase as 140 which had hx of elevation upto 170. Today Total bili has increased upto 4.6 (1.5 2 days ago). Repeated CT test of abdomen and pelvis and radiologist personally gave a call to inform there is small extraluminal gas seen adjacent to the cecum and normal appearing appendix. Patient's findings were discussed with Dr. Ornelas and he kindly accepted patient's care for surgical intervention and management. Discussed the plan of care and findings with patient and he verbalized understanding and agreement with treatment plan. <Prasanna Vargas MD - Last Filed: 01/23/20 16:37> Lab Data Labs: Lab Results 01/23/20 01/23/20 01/23/20 Range/Units 12:39 12:39 12:39 WBC 16.0 H (4.5-11.0) X10^3/uL RBC 4.80 (4.5-5.9) X10^6/uL Hgb 14.3 (13.5-17.5) g/dL Hct 41.3 (41-53) % MCV 86.1 (80-100) fL MCH 29.8 (26-34) PG MCHC 34.6 (30-36) % RDW 12.8 (11.6-14.8) % Plt Count 203 (150-400) X10^3/uL Neut % (Auto) 87.1 H D (50-75) % Lymph % (Auto) 5.6 L D (25-40) % Craven % (Auto) 7.0 (3-14) % Eos % (Auto) 0.0 L (2-4) % Baso % (Auto) 0.3 (0-2) % Neut # (Auto) 36358 H (0991-9241) /uL Lymph # (Auto) 900 L (1960-6352) /uL Craven # (Auto) 1100 H (0-900) /uL Eos # (Auto) 0 (0-450) /uL Baso # (Auto) 100 (0-100) /uL PT (10.1-12.7) SECONDS INR (0.9-1.3) APTT (26.4-36.2) SECONDS Sodium 137 (137-145) mmol/L Potassium 3.7 (3.4-5.1) mmol/L Chloride 98 (98-107) mmol/L Carbon Dioxide 28 (22-32) mmol/L BUN 10 (9-20) mg/dL Creatinine 0.93 (0.66-1.25) mg/dL Estimated GFR > 60.0 (>60) mL/min BUN/Creatinine Ratio 10.8 (6-22) Glucose 105 H (70-100) mg/dL Lactate (0.7-2.1) mmol/L Calcium 9.4 (8.4-10.2) mg/dL Total Bilirubin 4.6 H (0.2-1.3) mg/dL AST 23 (17-59) IU/L ALT 18 (<50) IU/L Alkaline Phosphatase 140 H (38-126) U/L Total Protein 8.3 H (6.3-8.2) g/dL Albumin 4.7 (3.5-5.0) g/dL Globulin 3.6 (1.7-4.1) g/dL Albumin/Globulin Ratio 1.3 (1.0-2.8) Procalcitonin 0.05 (<0.5) ng/mL 01/23/20 01/23/20 Range/Units 12:39 12:39 WBC (4.5-11.0) X10^3/uL RBC (4.5-5.9) X10^6/uL Hgb (13.5-17.5) g/dL Hct (41-53) % MCV (80-100) fL MCH (26-34) PG MCHC (30-36) % RDW (11.6-14.8) % Plt Count (150-400) X10^3/uL Neut % (Auto) (50-75) % Lymph % (Auto) (25-40) % Craven % (Auto) (3-14) % Eos % (Auto) (2-4) % Baso % (Auto) (0-2) % Neut # (Auto) (9291-7117) /uL Lymph # (Auto) (8253-1533) /uL Craven # (Auto) (0-900) /uL Eos # (Auto) (0-450) /uL Baso # (Auto) (0-100) /uL PT 14.0 H (10.1-12.7) SECONDS INR 1.2 (0.9-1.3) APTT 30 D (26.4-36.2) SECONDS Sodium (137-145) mmol/L Potassium (3.4-5.1) mmol/L Chloride (98-107) mmol/L Carbon Dioxide (22-32) mmol/L BUN (9-20) mg/dL Creatinine (0.66-1.25) mg/dL Estimated GFR (>60) mL/min BUN/Creatinine Ratio (6-22) Glucose (70-100) mg/dL Lactate 1.0 (0.7-2.1) mmol/L Calcium (8.4-10.2) mg/dL Total Bilirubin (0.2-1.3) mg/dL AST (17-59) IU/L ALT (<50) IU/L Alkaline Phosphatase (38-126) U/L Total Protein (6.3-8.2) g/dL Albumin (3.5-5.0) g/dL Globulin (1.7-4.1) g/dL Albumin/Globulin Ratio (1.0-2.8) Procalcitonin (<0.5) ng/mL Discharge Plan Departure Patient Disposition: Admitted As Inpatient Clinical Impression: Cecal diverticulitis, Perforated diverticulum of large intestine Discharge Date/Time: 01/23/20 16:06 Referrals: Deana Germain MD [Primary Care Provider] - Admit Date/Time: 01/23/20 15:41 Admit Provider: Naseem Ornelas
[2020-01-23 13:19] LABS: Procalcitonin 0.05 ng/mL (<0.5)
[2020-01-23] MEDS: LACTATED RINGERS 1,000 ML 125 ML IV (14:19)
[2020-01-23] MEDS: KETOROLAC 60 MG/2 ML VIAL 30 MG IV (15:08)
[2020-01-23] MEDS: metroNIDAZOLE 500 MG/100 ML PIGGYBACK 100 MG IV (15:09)
[2020-01-23] MEDS: PIPERACILLIN-TAZO 3.375 GM/50 ML FROZ.PIGGY IV ×2 (15:09→21:52)
--- NOTE | 2020-01-23 15:51 | P.HP_ITS ---
History of Present Illness History of Present Illness Date Patient Seen: 01/23/20 Time Patient Seen: 15:54 Chief complaint: Diverticulitis worsening, vomiting, dizzy, pain Narrative: 34-year-old white male has had a lower abdominal pain now for 2 days. It has been associated with anorexia nausea but no vomiting. He had some diarrhea this morning. He came to the emergency department 2 days ago with the same illness was white count was [address] he [address] a [address] scan which was read as cecal diverticulitis. There was no sign of perforation at that time. His pain persisted and increased in intensity he came back to the emergency department. Patient had been taking Augmentin for this condition over the last 2 days. Today the patient is febrile 101 0.2 has a white count of 16,[address] scan which shows perforation with free air around the cecum. The radiologist thinks the patient has a normal appendix. On my interpretation there is a large phlegmon around the cecum. I think he likely has a ruptured appendix. Patient has been seeing A forest economist over the last 4 months. He has had an upper and lower endoscopy. Patient tells me that his colonoscopy was entirely normal. There was no mention of diverticulosis. There was no mention of any form of colitis. The patient does have abnormal liver chemistries that are being followed by his forest economist. 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 Patient does not have any history of bowel changes no long history of diarrhea certainly no hematochezia Patient History Medical History GERD (gastroesophageal reflux disease) (Acute) Family & Social History Family History Mother Parkinson disease Safety & Behavioral: Feels Safe in Current Yes Environment Been Physically Hurt or No Threatened By a Person Tobacco & Substance use: Smoking Status Never smoker alcohol intake frequency a few times a month Substance Use Type does not use Meds Home Medications and Allergies Home Medications Medication Instructions Recorded Confirmed Type pantoprazole 20 mg PO DAILY 10/18/19 01/21/20 History amoxicillin-pot clavulanate 1 tab PO TID 7 Days #21 tab 01/21/20 Rx Allergies Allergy/AdvReac Type Severity Reaction Status Date / Time No Known Drug Allergies Allergy Verified 01/21/20 18:45 Review of Systems Review of Systems ROS: Yes All systems reviewed with the patient and are negative except as otherwise documented Exam Vital Signs (past 8 hours): - 01/23/20 12:31 01/23/20 13:00 01/23/20 14:52 Temperature 101 F H 101.8 F H Pulse Rate 118 H 96 H 107 H Respiratory Rate 24 22 Blood Pressure 137/67 Blood Pressure [Right Arm] 124/64 134/67 Pulse Oximetry 100 98 100 01/23/20 15:22 Temperature Pulse Rate 104 H Respiratory Rate Blood Pressure Blood Pressure [Right Arm] 119/67 Pulse Oximetry 98 Oxygen Delivery Method Room Air Narrative Exam Narrative: Patient is febrile 101.2 Is nose and throat are unremarkable Neck no adenopathy Lungs are clear no rales or wheezes Heart regular rhythm no murmur Abdomen not distended. He has exquisite right lower quadrant tenderness with guarding and rebound tenderness in the right lower quadrant. He has a positive Rovsing sign. He has positive iliopsoas test. Extremities and neurologic are normal. Objective Labs Result Diagrams: 01/23/20 12:39 01/23/20 12:39 Labs: Laboratory Results - last 24 hr 01/23/20 01/23/20 01/23/20 12:39 12:39 12:39 WBC 16.0 H RBC 4.80 Hgb 14.3 Hct 41.3 MCV 86.1 MCH 29.8 MCHC 34.6 RDW 12.8 Plt Count 203 Neut % (Auto) 87.1 H D Lymph % (Auto) 5.6 L D [place] % (Auto) 7.0 Eos % (Auto) 0.0 L Baso % (Auto) 0.3 Neut # (Auto) 64838 H Lymph # (Auto) 900 L [place] # (Auto) 1100 H Eos # (Auto) 0 Baso # (Auto) 100 PT INR APTT Sodium 137 Potassium 3.7 Chloride 98 Carbon Dioxide 28 BUN 10 Creatinine 0.93 Estimated GFR > 60.0 BUN/Creatinine Ratio 10.8 Glucose 105 H Lactate Calcium 9.4 Total Bilirubin 4.6 H AST 23 ALT 18 Alkaline Phosphatase 140 H Total Protein 8.3 H Albumin 4.7 Globulin 3.6 Albumin/Globulin Ratio 1.3 Procalcitonin 0.05 01/23/20 01/23/20 12:39 12:39 WBC RBC Hgb Hct MCV MCH MCHC RDW Plt Count Neut % (Auto) Lymph % (Auto) [place] % (Auto) Eos % (Auto) Baso % (Auto) Neut # (Auto) Lymph # (Auto) [place] # (Auto) Eos # (Auto) Baso # (Auto) PT 14.0 H INR 1.2 APTT 30 D Sodium Potassium Chloride Carbon Dioxide BUN Creatinine Estimated GFR BUN/Creatinine Ratio Glucose Lactate 1.0 Calcium Total Bilirubin AST ALT Alkaline Phosphatase Total Protein Albumin Globulin Albumin/Globulin Ratio Procalcitonin Assessment & Plan Assessment & Plan narrative: I suspect patient has ruptured appendix with pericecal inflammatory changes. My plan is to explore him and remove his appendix as well as clear out the infection. I will leave a drain in the right lower quadrant. I have explained all this the patient who understands and agrees. He has no unanswered questions.
--- NOTE | 2020-01-23 17:54 | SUR.OPER ---
Supine on padded OR bed, head on pillow, arms secured on padded arm boards at <90 degrees abduction, legs uncrossed, safety belt at thigh, tape over blanket over lower legs.
[2020-01-23] MEDS: SODIUM CHLORIDE IRRIG SOLUTION 1,000 ML, BACITRACIN 50,000 UNIT IRR (18:03)
[2020-01-23] MEDS: BUPIVACAINE 0.5% W/ EPI (PF) 30 ML VIAL INJ (18:04)
[2020-01-23] MEDS: NEOMYCIN/POLYMYXIN/BACITRA UD OINT 1 EACH TOP ×2 (18:05)
--- NOTE | 2020-01-23 18:33 | SUR.PHASEI ---
Pt arousing spontaneously, denies pain/nausea, declines ice chips, states that he'd like to sleep. Asking appropriate questions about his surgery.
--- NOTE | 2020-01-23 18:40 | SUR.PHASEI ---
waiting for floor RN to return call for report
--- NOTE | 2020-01-23 18:51 | PM.OP.1 ---
Operative Date/Time/Diagnoses Date of procedure: 01/23/20 Time of procedure: 18:51 Pre-op diagnosis: Acute appendicitis with phlegmon of the cecum Post-op diagnosis: same Procedure & Clinicians Procedure: Appendectomy exploration of cecum retrocecal drainage of cecum Same procedure as scheduled: Yes Surgeon: Naseem Ornelas Click Yes if Unassisted: Yes Anesthesia Type: General Operative Notes Findings: Patient had appendicitis with appendiceal inflammatory changes without obvious perforation. Closure Type: primary Specimen(s): other (Peritoneal cultures and appendix) Estimated Blood Loss (mL): 50 Blood products transfused: none Procedure in detail: The patient was properly identified during surgical pause prepped and draped in a sterile fashion exposure of the right lower quadrant of the abdomen. A Dave-Chaz incision was made over McBurney's point. The oblique muscles split and agreed iron fashion exposing the peritoneum which was elevated and entered so as to avoid injury to the underlying structures. There was a fair amount of inflammatory fluid around the cecum. This was cultured for aerobes and anaerobes. It was aspirated dry. The appendix was elevated it was acutely inflamed but there was no obvious perforation. I removed the appendix by dividing the mesoappendix between clamps ligating the vessels with 2 0 Vicryl. The base the appendix was closed with a TA 30? stapler. The appendix removed over the staple line. The staple line was intact. The cecum was mobilized because there was a great deal of induration in the retrocecal area. This mobilization revealed some purulence. No obvious cecal perforation could be identified. I irrigated the right gutter and pelvis with a copious amount of bacitracin saline and aspirated it dry there was no further purulence. Three separate stab wound below the incision I placed a 10 mm Cj Medley drain partly in the pelvis and with the tip of the drain behind the cecum. The drain was sutured the skin with fine nylon. The peritoneum was then closed with a running 2 0 Vicryl the wound was irrigated with bacitracin saline. The oblique fascia closed with 1. PDS. The skin stapled sterile dressings applied the procedure was well tolerated. Complications: none Post-operative Condition: stable Disposition: PACU
--- NOTE | 2020-01-23 19:02 | SUR.PHASEI ---
1851 to room 213, bed down and locked, call light within reach. Pt awake, reported to VARUN Auguste that pt c/o pain 2/10 upon transfer. was in the waiting area - reported to her that his wallet is in his clothing bag. Pt declined to lock up anything upon arrival to his room. Ring/band untaped. No questions from staff or patient. Stable.
[2020-01-23] MEDS: LACTATED RINGERS 1,000 ML 100 ML IV (19:20)
[2020-01-23] MEDS: OXYCODONE/ACETAMINOPHEN 5/325 TABLET 1 TAB PO (19:56)
[2020-01-23] MEDS: GABAPENTIN 300 MG CAPSULE PO (21:51)
[2020-01-23] MEDS: SIMETHICONE 80 MG TABLET PO (21:52)
[2020-01-23] MEDS: FAMOTIDINE 20 MG/50 ML PIGGYBACK 200 MG IV (23:58)
[2020-01-24] VITALS (7 sets, daily range): BP systolic 97–122; BP diastolic 56–79; PULSE 53–82; RESP 16–20; TEMP 36.1–36.8; O2SAT 99–100
--- NOTE | 2020-01-24 01:00 | PC.NURSE ---
Patient is alert and oriented although drowsy. Breath sounds CTA with RA sat of 99%; on continuous pulse oximetry. HRR but intermittently bradycardic in 50's and BP low at 97/66. Denies nausea. BT hypoactive and patient denies flatus as yet; abdomen is soft and nontender. Has voided since surgery using urinal and standing at bedside with 1 assist; denies any dysuria. Able to move himself in bed. Dressing to RLQ is intact with serous drainage in right lower corner of dressing. NELLI is intact and compressed. Wearing bilateral calf SCD's. States pain currently 2/10 but declines need for pain medication. Fall risk score is moderate; bed alarm is activated.
[2020-01-24] MEDS: PIPERACILLIN-TAZO 3.375 GM/50 ML FROZ.PIGGY IV ×4 (03:36→21:50)
[2020-01-24 03:45] LABS: Bacteria Urine None Seen; RBC Urine None Seen (0-5/HPF); WBC Urine None Seen (0-5/HPF)
[2020-01-24 03:46] LABS: Appearance Urine UA CLEAR; Bilirubin Urine UA NEGATIVE (NEGATIVE); Color Urine UA YELLOW; Glucose Urine UA NEGATIVE (Negative); Ketones Urine UA NEGATIVE (NEGATIVE); Leukocyte Esterase Urine UA NEGATIVE (NEGATIVE); Nitrite Urine UA NEGATIVE (Negative); Occult Blood Urine UA NEGATIVE (Negative); Protein Urine UA NEGATIVE (Negative); Urobilinogen Urine UA 0.2 E.U./dL (0.2); pH Urine UA 6.5 (4.5-8.0)
[2020-01-24 04:02] LABS: Culture Indicated Urine Cult Not Indicated; Urine Comments Microscopic Normal
[2020-01-24] MEDS: LACTATED RINGERS 1,000 ML 100 ML IV ×2 (06:31→18:00)
[2020-01-24 06:47] LABS: Add Manual Diff / Slide Review NO; Basophils Absolute Auto 0 /uL (0-100); Basophils Percent Auto 0.1 % (0-2); Eosinophils Absolute Auto 0 /uL (0-450); Hematocrit 40.7 % (41-53); Hemoglobin 13.9 g/dL (13.5-17.5); Lymphocytes Absolute Auto 800 /uL (1100-4500); Lymphocytes Percent Auto 6.2 % (25-40); Mean Corpuscular HGB Conc 34.2 % (30-36); Mean Corpuscular Hemoglobin 29.6 PG (26-34); Mean Corpuscular Volume 86.6 fL (80-100); Monocytes Absolute Auto 500 /uL (0-900); Neutrophils Absolute Auto 11800 /uL (1500-7000); Neutrophils Percent Auto 89.7 % (50-75); Platelet Count 171 X10^3/uL (150-400); Red Cell Distribution Width 12.9 % (11.6-14.8); White Blood Cell Count 13.1 X10^3/uL (4.5-11.0)
[2020-01-24] MEDS: OXYCODONE/ACETAMINOPHEN 5/325 TABLET 1 TAB PO ×4 (08:17→23:35)
[2020-01-24] MEDS: SIMETHICONE 80 MG TABLET PO ×4 (08:17→21:47)
[2020-01-24] MEDS: GABAPENTIN 300 MG CAPSULE PO ×2 (08:18→21:47)
[2020-01-24] MEDS: FAMOTIDINE 20 MG/50 ML PIGGYBACK 200 MG IV ×2 (12:33→23:35)
--- NOTE | 2020-01-24 12:33 | PM.PNPO.1 ---
Subjective Subjective Date Patient Seen: 01/24/20 Time Patient Seen: 08:02 Interval history: Patient is postop day 1 from an open appendectomy. He has inflammatory changes around his cecum. He appeared to have acute appendicitis at time of operation. He feels much better than he did earlier. Still having pain but markedly improved from preop. No nausea at this time. Pain that he is having now at the incision increases with movement. Exam Vital Signs (past 8 hours): - 01/24/20 08:20 Temperature 97.3 F L Pulse Rate 59 L Respiratory Rate 16 Blood Pressure 122/63 Pulse Oximetry 100 Oxygen Delivery Method Room Air Oxygen Flow Rate 0 Narrative Exam Narrative: Operative no apparent distress. Lungs are clear with excellent effort. Heart regular rate and rhythm without murmur gallop. Abdomen is soft scaphoid with minimal tenderness in the right lower quadrant. Drainage is thin/serosanguineous. Objective Labs Result Diagrams: 01/24/20 06:25 01/23/20 12:39 Labs: Laboratory Results - last 24 hr 01/23/20 01/23/20 01/23/20 12:39 12:39 12:39 WBC 16.0 H RBC 4.80 Hgb 14.3 Hct 41.3 MCV 86.1 MCH 29.8 MCHC 34.6 RDW 12.8 Plt Count 203 Neut % (Auto) 87.1 H D Lymph % (Auto) 5.6 L D [place] % (Auto) 7.0 Eos % (Auto) 0.0 L Baso % (Auto) 0.3 Neut # (Auto) 83019 H Lymph # (Auto) 900 L [place] # (Auto) 1100 H Eos # (Auto) 0 Baso # (Auto) 100 PT INR APTT Sodium 137 Potassium 3.7 Chloride 98 Carbon Dioxide 28 BUN 10 Creatinine 0.93 Estimated GFR > 60.0 BUN/Creatinine Ratio 10.8 Glucose 105 H Lactate Calcium 9.4 Total Bilirubin 4.6 H AST 23 ALT 18 Alkaline Phosphatase 140 H Total Protein 8.3 H Albumin 4.7 Globulin 3.6 Albumin/Globulin Ratio 1.3 Procalcitonin 0.05 Urine Color Urine Appearance Urine pH Ur Specific [place] Urine Protein Urine Glucose (UA) Urine Ketones Urine Occult Blood Urine Nitrate Urine Bilirubin Urine Urobilinogen Ur Leukocyte Esterase Urine RBC Urine WBC Urine Bacteria Ur Culture Indicated? Micro UA Comment 01/23/20 01/23/2001/23/20 12:39 12:39 03:36 WBC RBC Hgb Hct MCV MCH MCHC RDW Plt Count Neut % (Auto) Lymph % (Auto) [place] % (Auto) Eos % (Auto) Baso % (Auto) Neut # (Auto) Lymph # (Auto) [place] # (Auto) Eos # (Auto) Baso # (Auto) PT 14.0 H INR 1.2 APTT 30 D Sodium Potassium Chloride Carbon Dioxide BUN Creatinine Estimated GFR BUN/Creatinine Ratio Glucose Lactate 1.0 Calcium Total Bilirubin AST ALT Alkaline Phosphatase Total Protein Albumin Globulin Albumin/Globulin Ratio Procalcitonin Urine Color Yellow Urine Appearance Clear Urine pH 6.5 Ur Specific [place] 1.010 Urine Protein Negative Urine Glucose (UA) Negative Urine Ketones Negative Urine Occult Blood Negative Urine Nitrate Negative Urine Bilirubin Negative Urine Urobilinogen 0.2 Ur Leukocyte Esterase Negative Urine RBC None seen Urine WBC None seen Urine Bacteria None seen Ur Culture Indicated? Cult not indicated Micro UA Comment Microscopic normal 01/24/20 06:25 WBC 13.1 H RBC 4.70 Hgb 13.9 Hct 40.7 L MCV 86.6 MCH 29.6 MCHC 34.2 RDW 12.9 Plt Count 171 Neut % (Auto) 89.7 H Lymph % (Auto) 6.2 L [place] % (Auto) 4.0 Eos % (Auto) 0.0 L Baso % (Auto) 0.1 Neut # (Auto) 24859 H Lymph # (Auto) 800 L [place] # (Auto) 500 Eos # (Auto) 0 Baso # (Auto) 0 PT INR APTT Sodium Potassium Chloride Carbon Dioxide BUN Creatinine Estimated GFR BUN/Creatinine Ratio Glucose Lactate Calcium Total Bilirubin AST ALT Alkaline Phosphatase Total Protein Albumin Globulin Albumin/Globulin Ratio Procalcitonin Urine Color Urine Appearance Urine pH Ur Specific [place] Urine Protein Urine Glucose (UA) Urine Ketones Urine Occult Blood Urine Nitrate Urine Bilirubin Urine Urobilinogen Ur Leukocyte Esterase Urine RBC Urine WBC Urine Bacteria Ur Culture Indicated? Micro UA Comment Assessment & Plan Post-op Postoperative Procedures: Procedures Operation Date: 01/23/20 17:00 Actual Procedures Side Surgeon p Appendectomy Naseem Ornelas MD Postoperative day: 1 Postoperative status: doing well Postoperative plan narrative: Continue IV antibiotics. Clear liquids for now. Encourage deep breathing and ambulation. Repeat labs in the morning. Quality VTE Deep Vein Thrombosis/Pulmonary Embolism Present on Admission: No
[2020-01-24 14:36] LABS: Alanine Aminotransferase 32 IU/L (<50); Albumin 4.3 g/dL (3.5-5.0); Albumin Globulin Ratio 1.3 (1.0-2.8); Alkaline Phosphatase 130 U/L (38-126); Aspartate Aminotransferase 44 IU/L (17-59); Bilirubin Total 4.2 mg/dL (0.2-1.3); Bilirubin Unconjugated 3.8 mg/dL (0.0-1.1); Globulin 3.3 g/dL (1.7-4.1); HEMOLYSIS < 15 (0-50); Total Protein 7.6 g/dL (6.3-8.2)
--- NOTE | 2020-01-24 15:03 | PC.NURSE ---
Dressing to RLQ changed and redressed with sterile dry gauze. Old dressing had moderate pink drainage. NELLI drain intact, patent and compressed. Output for shift was 20ml.
--- NOTE | 2020-01-24 16:38 | CM.DANOTE ---
DCP/Assessment: Reviewed chart. Patient is a 34yr old male admitted to [facility] with abdominal pain. PCP is Deana Germain at [facility]. Primary payor is 1) [employer]. Met with patient explained CM/SS role. Patient alert and oriented, resting in bed at time of visit. Patient reports that he is active and lives with his and 2 children at [place]. Patient does not anticipate any d/c planning needs. P: Home when stable. CESARIO James Discharge Planning/Care Management CM Discharge Assessment Start: 01/24/20 16:36 Freq: Status: Active Protocol: Document 01/24/20 16:36 KJS (Rec: 01/24/20 16:38 KJS [id number]) Discharge Planning Assessment Assigned [employer] Driver Operator CESARIO James Contact Information Marcella Carty (spouse) [phone] Advance Directives? Yes History Provided By Patient,Medical Record Prior Living Arrangements House Household Members spouse,children Type of transporation used prior to Drives own vehicle admit Independent with ADL's Yes Is patient alert and oriented? Yes Caregiver for Another Yes: and 2 children Barriers to Discharge No Discharge Plan Home Transportation Arrangement Family to provide transport. Referrals Initiated None needed Whiteboard Updated in Patient Room with Yes name and ext. # of [employer] Driver Operator Review Status In Process Next Review Type Continued Stay Review
[2020-01-25] MEDS: PIPERACILLIN-TAZO 3.375 GM/50 ML FROZ.PIGGY IV ×4 (03:13→22:08)
[2020-01-25 03:42] VITALS: BP 115/69; PULSE 54; RESP 18; TEMP 36.3; O2SAT 100
[2020-01-25] MEDS: LACTATED RINGERS 1,000 ML 100 ML IV (04:39)
[2020-01-25 05:45] LABS: Add Manual Diff / Slide Review NO; Basophils Absolute Auto 0 /uL (0-100); Basophils Percent Auto 0.2 % (0-2); Eosinophils Absolute Auto 0 /uL (0-450); Eosinophils Percent Auto 0.1 % (2-4); Hematocrit 37.8 % (41-53); Hemoglobin 12.7 g/dL (13.5-17.5); Lymphocytes Absolute Auto 1500 /uL (1100-4500); Lymphocytes Percent Auto 9.6 % (25-40); Mean Corpuscular HGB Conc 33.7 % (30-36); Mean Corpuscular Hemoglobin 29.4 PG (26-34); Mean Corpuscular Volume 87.2 fL (80-100); Monocytes Absolute Auto 1300 /uL (0-900); Monocytes Percent Auto 8.8 % (3-14); Neutrophils Absolute Auto 12300 /uL (1500-7000); Neutrophils Percent Auto 81.3 % (50-75); Platelet Count 191 X10^3/uL (150-400); Red Blood Cell Count 4.34 X10^6/uL (4.5-5.9); Red Cell Distribution Width 12.9 % (11.6-14.8); White Blood Cell Count 15.1 X10^3/uL (4.5-11.0)
--- NOTE | 2020-01-25 06:45 | PC.NURSE ---
Pt reports passing gas. Minimal pain, relieved with Percocet at start of shift. Denies pain this morning. Dressing to abdomen is CDI NELLI=10cc sero-sang drainage. LR@100mL/hr tolerating clear liquid diet b/l calf SCDs on
[2020-01-25] MEDS: SIMETHICONE 80 MG TABLET PO ×2 (08:13→16:40)
[2020-01-25] MEDS: GABAPENTIN 300 MG CAPSULE PO ×2 (08:13→21:00)
[2020-01-25] MEDS: OXYCODONE/ACETAMINOPHEN 5/325 TABLET 1 TAB PO (08:14)
[2020-01-25] MEDS: metroNIDAZOLE 250 MG/50 ML PIGGYBACK 100 MG IV ×3 (08:49→21:00)
[2020-01-25 09:00] VITALS: BP 129/72; PULSE 85; RESP 16; TEMP 36.4; O2SAT 100
[2020-01-25 11:20] VITALS: BP 124/74; PULSE 75; RESP 16; TEMP 36.4; O2SAT 100
[2020-01-25] MEDS: FAMOTIDINE 20 MG/50 ML PIGGYBACK 200 MG IV (11:20)
[2020-01-25] MEDS: DEXTROSE 5%-LACTATED RINGERS 1,000 ML 84 ML IV (11:21)
--- NOTE | 2020-01-25 12:02 | P.PN_ITS ---
Subjective Subjective Date Patient Seen: 01/25/20 Time Patient Seen: 10:02 Interval history: Patient states that her is pain on walking and his abdomen has improved. He is having occasional very sharp pains that come and go in his abdomen and he feels like he has some cramping like gas pains moving around his abdomen. Overall he feels he is doing better. Exam Vital Signs (past 8 hours): - 01/25/20 09:00 01/25/20 11:20 Temperature 97.5 F L 97.5 F L Pulse Rate 85 75 Respiratory Rate 16 16 Blood Pressure 129/72 124/74 Pulse Oximetry 100 100 Oxygen Delivery Method Room Air Oxygen Flow Rate 0 Narrative Exam Narrative: Lungs are clear to auscultation with excellent effort. Heart regular rate and rhythm without murmur gallop. Abdomen is scaphoid soft. His incision looks great there is no cellulitis the drain site is fine. The drain is draining serosanguineous material. Objective Labs Result Diagrams: 01/25/20 05:20 01/23/20 12:39 Labs: Laboratory Results - last 24 hr 01/24/20 01/25/20 06:25 05:20 WBC 15.1 H RBC 4.34 L Hgb 12.7 L Hct 37.8 L MCV 87.2 MCH 29.4 MCHC 33.7 RDW 12.9 Plt Count 191 Neut % (Auto) 81.3 H Lymph % (Auto) 9.6 L [place] % (Auto) 8.8 Eos % (Auto) 0.1 L Baso % (Auto) 0.2 Neut # (Auto) 82482 H Lymph # (Auto) 1500 [place] # (Auto) 1300 H Eos # (Auto) 0 Baso # (Auto) 0 Total Bilirubin 4.2 H Conjugated Bilirubin 0.0 Unconjugated Bilirubin 3.8 H AST 44 ALT 32 Alkaline Phosphatase 130 H Total Protein 7.6 Albumin 4.3 Globulin 3.3 Albumin/Globulin Ratio 1.3 Assessment & Plan Post-op Postoperative Procedures: Procedures Operation Date: 01/23/20 17:00 Actual Procedures Side Surgeon p Appendectomy Naseem Ornelas MD Postoperative day: 2 Postoperative status narrative: Patient's white blood cell count is rising li ttle bit. That is concerning. Still has a preponderance of segs on differential. Clinically he seems to be improving. I will add an additional antibiotic. The culture results are pending. The pathology report is pending. Having loose stool. Postoperative plan narrative: Continue Zosyn and add antibiotic. Check labs in a.m.. Consider repeat CT scan if white count continues to rise. Check stool for pathogens. Quality VTE Deep Vein Thrombosis/Pulmonary Embolism Present on Admission: No
[2020-01-25 15:30] VITALS: BP 134/76; PULSE 72; RESP 16; TEMP 36.9; O2SAT 99
[2020-01-25 20:53] LABS: Adenovirus F 40/41 Not Detected (Not Detect); Astrovirus Not Detected (Not Detect); Campylobacter Not Detected (Not Detect); Clostridium difficile toxin AB Not Detected (Not Detect); Cryptosporidium Not Detected (Not Detect); Cyclospora cayetanensis Not Detected (Not Detect); Entamoeba histolytica Not Detected (Not Detect); Enteroaggregative E.coli Not Detected (Not Detect); Enteropathogenic E.coli Not Detected (Not Detect); Enterotoxigenic E.coli It/st Not Detected (Not Detect); Giardia lamblia Not Detected (Not Detect); Norovirus GI/GII Not Detected (Not Detect); Plesiomonsa shigelloides Not Detected (Not Detect); Rotavirus A Not Detected (Not Detect); Salmonella Not Detected (Not Detect); Sapovirus Not Detected (Not Detect); Shiga-like toxin-prod E.coli Not Detected (Not Detect); Shigella/Enteroinvasive E.coli Not Detected (Not Detect); Vibrio Not Detected (Not Detect); Vibrio cholerae Not Detected (Not Detect); Yersinia enterocolitica Not Detected (Not Detect)
[2020-01-25 21:00] VITALS: BP 117/76; PULSE 62; RESP 16; TEMP 36.4; O2SAT 97
[2020-01-25 23:35] VITALS: BP 127/89; PULSE 62; RESP 16; TEMP 36.4; O2SAT 100
[2020-01-26] MEDS: FAMOTIDINE 20 MG/50 ML PIGGYBACK 200 MG IV ×2 (00:02→12:06)
[2020-01-26] MEDS: DEXTROSE 5%-LACTATED RINGERS 1,000 ML 84 ML IV (00:02)
[2020-01-26] MEDS: metroNIDAZOLE 250 MG/50 ML PIGGYBACK 100 MG IV ×2 (02:27→08:17)
[2020-01-26] MEDS: PIPERACILLIN-TAZO 3.375 GM/50 ML FROZ.PIGGY IV ×2 (04:07→10:25)
[2020-01-26 05:23] LABS: Add Manual Diff / Slide Review NO; Basophils Absolute Auto 0 /uL (0-100); Basophils Percent Auto 0.6 % (0-2); Eosinophils Absolute Auto 0 /uL (0-450); Eosinophils Percent Auto 0.6 % (2-4); Hematocrit 34.2 % (41-53); Hemoglobin 11.8 g/dL (13.5-17.5); Lymphocytes Absolute Auto 2700 /uL (1100-4500); Lymphocytes Percent Auto 36.2 % (25-40); Mean Corpuscular HGB Conc 34.5 % (30-36); Mean Corpuscular Volume 86.9 fL (80-100); Monocytes Absolute Auto 700 /uL (0-900); Monocytes Percent Auto 9.6 % (3-14); Neutrophils Absolute Auto 4000 /uL (1500-7000); Platelet Count 191 X10^3/uL (150-400); Red Blood Cell Count 3.93 X10^6/uL (4.5-5.9); Red Cell Distribution Width 12.9 % (11.6-14.8); White Blood Cell Count 7.5 X10^3/uL (4.5-11.0)
--- NOTE | 2020-01-26 05:47 | PC.NURSE ---
Pt rated pain 4/10 overnight, denied need for PRN pain medication. Tolerating full liquid diet without increased abdominal pain/cramping, diarrhea, nausea. Pt does report his some bloating. Bowel tones positive and pt confirms passing gas. Pt reports 4 loose stools yesterday, none overnight. CBC done this AM, WBC down from 15.1 to 7.5. Pt has no objective signs of sepsis, VSS. NELLI drain draining sm amount <10cc serosanguinous. Monitor for s/s infection, tolerating advanced diet, monitor for increasing loose stools and measuring all stool output..
[2020-01-26 06:02] VITALS: BP 115/66; PULSE 60; RESP 15; TEMP 36.4; O2SAT 99
[2020-01-26 07:50] VITALS: BP 131/79; PULSE 53; RESP 16; TEMP 36.6; O2SAT 97
[2020-01-26] MEDS: SIMETHICONE 80 MG TABLET PO ×4 (08:17→21:32)
[2020-01-26] MEDS: GABAPENTIN 300 MG CAPSULE PO ×2 (08:17→21:29)
--- NOTE | 2020-01-26 10:28 | PM.PN.1 ---
Subjective Subjective Date Patient Seen: 01/26/20 Time Patient Seen: 10:28 Interval history: Tolerated full liquids yesterday. Abdominal and pain has improved significantly over the past 24 hours. No vomiting nausea or fever. Exam Vital Signs (past 8 hours): - 01/26/20 06:02 01/26/20 07:50 Temperature 97.5 F L 97.8 F Pulse Rate 60 53 L Respiratory Rate 15 16 Blood Pressure 115/66 131/79 Pulse Oximetry 99 97 Oxygen Delivery Method Room Air Oxygen Flow Rate 0 Narrative Exam Narrative: General adult male alert oriented no acute distress Abdomen soft appropriately tender to palpation incision clean dry intact drain with serosanguineous output Objective Labs Result Diagrams: 01/26/20 05:00 01/23/20 12:39 Labs: Laboratory Results - last 24 hr 01/25/20 01/26/20 19:08 05:00 WBC 7.5 D RBC 3.93 L Hgb 11.8 L Hct 34.2 L MCV 86.9 MCH 30.0 MCHC 34.5 RDW 12.9 Plt Count 191 Neut % (Auto) 53.0 D Lymph % (Auto) 36.2 D [place] % (Auto) 9.6 Eos % (Auto) 0.6 L Baso % (Auto) 0.6 Neut # (Auto) 4000 Lymph # (Auto) 2700 [place] # (Auto) 700 Eos # (Auto) 0 Baso # (Auto) 0 Stl C. cayetanensis PCR Not detected Stool Rotavirus (PCR) Not detected Stool Adenovirus (PCR) Not detected Stool Astrovirus (PCR) Not detected Stool Cryptosporidium PCR Not detected Stl E.coli Shiga Tox PCR Not detected St Sh/Enteroin Ecoli PCR Not detected Stool E coli O157 PCR Not Reportable Stl Enterotoxigenic E PCR Not detected Stool EPEC (PCR) Not detected Stl E. histolytica PCR Not detected Stool Giardia Lamblia PCR Not detected Stool Sapovirus (PCR) Not detected Stl P. shigelloides PCR Not detected St Y.enterocolitica PCR Not detected Stool Vibrio (PCR) Not detected Stl Vibrio cholerae PCR Not detected Stl Enteroaggr Ecoli PCR Not detected Stl Norovirus GI/GII PCR Not detected Campylobacter (PCR) Not detected C. difficile Tox (PCR) Not detected Salmonella (PCR) Not detected Assessment & Plan Assessment & Plan narrative: 34-year-old male postoperative day 3 status post laparoscopic appendectomy questionable cecal diverticulitis doing well. His white blood cell count had been arising was 15 yesterday is normal today is without fever his abdominal pain has significantly improved. He has been treated with IV Zosyn and Flagyl will transition him to p.o. Augmentin and Flagyl today check procalcitonin later today and repeat his white blood cell count tomorrow. -regular diet -out of bed ambulate -SCDs and Lovenox for VTE prophylaxis Quality VTE Deep Vein Thrombosis/Pulmonary Embolism Present on Admission: No
--- NOTE | 2020-01-26 11:07 | CM.DPC ---
DCP Continued: EMR reviewed: Cm/Rn Checked in with patient to verify D/C plan to go home with family is still the plan. Patient states he is feeling better today and still wants to D/C home when medically ready. CM/RN will continue to follow patient to assist with any new D/C planning needs arise. Corina Ohara RN
[2020-01-26 12:05] LABS: Procalcitonin 0.05 ng/mL (<0.5)
[2020-01-26 12:41] VITALS: BP 130/74; PULSE 67; RESP 16; TEMP 36.5; O2SAT 100
--- NOTE | 2020-01-26 14:11 | PC.NURSE ---
Pt reports mild pain, 3/10 but declines pain medication; bloating and cramping s/p regular lunch, BTs active, loose stools X 3; independent to bathroom; SL; probably d/c tomorrow pending tolerance of regular diet
[2020-01-26 15:51] VITALS: BP 122/74; PULSE 60; RESP 18; TEMP 36.6; O2SAT 100
[2020-01-26] MEDS: metroNIDAZOLE 500 MG TABLET PO ×2 (16:32→21:29)
[2020-01-26] MEDS: ENOXAPARIN 40 MG/0.4 ML SYRINGE SUBCUT (16:32)
[2020-01-26 19:50] VITALS: BP 125/73; PULSE 68; RESP 16; TEMP 36.3; O2SAT 98
[2020-01-26] MEDS: raNITIdine 150 MG CAPSULE PO (21:29)
[2020-01-26] MEDS: AMOXICILLIN/CLAV 875/125 MG 1 TAB PO (21:33)
[2020-01-27 00:10] VITALS: BP 120/72; PULSE 68; RESP 18; TEMP 36.2; O2SAT 100
[2020-01-27 05:13] VITALS: BP 119/76; PULSE 58; RESP 18; TEMP 36.5; O2SAT 99
[2020-01-27 05:58] LABS: Add Manual Diff / Slide Review NO; Basophils Absolute Auto 200 /uL (0-100); Basophils Percent Auto 2.4 % (0-2); Eosinophils Absolute Auto 200 /uL (0-450); Eosinophils Percent Auto 2.5 % (2-4); Hematocrit 37.3 % (41-53); Hemoglobin 12.7 g/dL (13.5-17.5); Lymphocytes Absolute Auto 2300 /uL (1100-4500); Lymphocytes Percent Auto 34.5 % (25-40); Mean Corpuscular Hemoglobin 29.6 PG (26-34); Monocytes Absolute Auto 700 /uL (0-900); Monocytes Percent Auto 10.2 % (3-14); Neutrophils Absolute Auto 3300 /uL (1500-7000); Neutrophils Percent Auto 50.4 % (50-75); Platelet Count 238 X10^3/uL (150-400); Red Blood Cell Count 4.28 X10^6/uL (4.5-5.9); White Blood Cell Count 6.5 X10^3/uL (4.5-11.0)
[2020-01-27 08:00] VITALS: BP 126/78; PULSE 67; RESP 16; TEMP 36.4; O2SAT 100
[2020-01-27] MEDS: raNITIdine 150 MG CAPSULE PO (08:42)
[2020-01-27] MEDS: ENOXAPARIN 40 MG/0.4 ML SYRINGE SUBCUT (08:42)
[2020-01-27] MEDS: GABAPENTIN 300 MG CAPSULE PO (08:42)
[2020-01-27] MEDS: metroNIDAZOLE 500 MG TABLET PO (08:42)
[2020-01-27] MEDS: AMOXICILLIN/CLAV 875/125 MG 1 TAB PO (08:43)
--- NOTE | 2020-01-27 11:25 | PC.NURSE ---
NELLI drain removed around 1110 without issue. 20 ml serosang drainage from drain after removal. Dressed with gauze and tegaderm.
--- NOTE | 2020-01-27 11:28 | P.DS_ITS ---
History of Present Illness History of Present Illness Date Patient Seen: 01/27/20 Time Patient Seen: 11:28 Chief complaint: Diverticulitis worsening, vomiting, dizzy, pain Narrative: The patient is a gentleman with right lower abdominal pain who was admitted with a phlegmon in his right lower quadrant based on CT scanning. He had marked elevation of his white blood cell count. Discharge Providers Provider Date of admission: 01/23/20 15:41 Discharge Date: 01/27/20 Primary care physician: Deana Germain MD Discharge provider: Silvino Colby MD Summary Hospital Course Discharge Diagnosis: Possible perforated appendicitis (pathology pending at time of discharge) Possible perforated diverticulitis of the cecum Hospital Course: Patient was explored and underwent an appendectomy. The append ix was thought to be the source of his abnormality of the cecum seen on CT scan by the surgeon who performed the operation. Postoperative course was marked by the use of broad-spectrum antibiotics. He had a rising white blood cell count initially at and Flagyl was added to Zosyn in his antibiotic treatment. His white blood cell count came down to normal. His he tolerated diet and was having loose stools initially but they were beginning to firm up at the time of discharge. He is discharged on Cipro and Flagyl for an additional 5 days and on oxycodone for pain. He may also use Tylenol and/or Motrin for pain. His a follow-up appointment in 1 week in the office for staple removal. Status at Discharge Cognitive/behavioral status at discharge: oriented Functional status at discharge: independent ambulation Overall status at discharge: patient is progressing back to baseline Exam Vital Signs (past 8 hours): - 01/27/20 05:13 01/27/20 08:00 Temperature 97.7 F 97.6 F Pulse Rate 58 L 67 Respiratory Rate 18 16 Blood Pressure 119/76 126/78 Pulse Oximetry 99 100 Oxygen Delivery Method Room Air Oxygen Flow Rate 0 Narrative Exam Narrative: Abdomen is soft. There is some tenderness around the incision as expected. Drainage is serosanguineous. There is no cloudiness about the drainage. The drain was removed today. Objective Labs Result Diagrams: 01/27/20 05:20 01/23/20 12:39 Labs: Laboratory Results - last 24 hr 01/26/20 01/27/20 05:00 05:20 WBC 6.5 RBC 4.28 L Hgb 12.7 L Hct 37.3 L MCV 87.0 MCH 29.6 MCHC 34.0 RDW 13.0 Plt Count 238 Neut % (Auto) 50.4 Lymph % (Auto) 34.5 Castro % (Auto) 10.2 Eos % (Auto) 2.5 Baso % (Auto) 2.4 H Neut # (Auto) 3300 Lymph # (Auto) 2300 Castro # (Auto) 700 Eos # (Auto) 200 Baso # (Auto) 200 H Procalcitonin 0.05 Discharge Plan Discharge Plan Patient Disposition: Home Discharge comment: You seemed to be recovering nicely from her operation. However if you develop a fever or red wound or your pain increases please call our office and have the doctor on-call paged. You may use plain Tylenol up to 1 g 3 times a day and/ or Naprosyn 600 mg up to 4 times a day if needed for pain. Discharge orders & Medications Prescriptions: New oxycodone 5 mg tablet See Rx Instructions .ROUTE .COMPLEX PRN (Reason: painful procedure) Qty: 14 RF: 0 ciprofloxacin HCl [Cipro] 500 mg tablet 500 mg PO Q12H Qty: 10 RF: 0 metronidazole [Flagyl] 500 mg tablet 500 mg PO TID Qty: 14 RF: 0 Continued pantoprazole 20 mg tablet,delayed release (DR/EC) 20 mg PO BID RF: 0 Follow up/Referrals: Deana Germain MD [Primary Care Provider] - Silvino Colby MD [Physician] - 02/03/20 2:35 pm (If you need to reach a doctor please call our office. If it is after hours please listen to the entire message in at the end you will be connected with our page automatic grinding machine operator who will page the doctor on-call. Try to avoid use of the emergency room unless you have a real emergency as your postoperative care is included in her operative care. Our office is located near the main entrance to the hospital. Enter through the main entrance(which is on the opposite side of the building from the emergency room entrance) and we are to the right of that. The sign over the door will say [facility].) Discharge Health Status Multidrug resistant organism: No MDRO Diet/Activity/Treatments Diet: Diet as Tolerated Activity: Do not lift over 10 lb or strain for the next 4 weeks. You may walk. No other exercise. No pool or tub for at least 2 weeks. Skin/Wound/Dressing Care Report to your healthcare provider any signs of infection, such as:: chills, fever, night sweats, increased pain, unusual drainage and unusual redness Dressing: Keep a dressing over your drain site until it stops draining. Remove it before showering and then replace it. Visit Report/Discharge Packet Instructions: DI for Prescription Opioid Use Discharge Data Primary Care Provider: Deana Germain VTE Deep Vein Thrombosis/Pulmonary Embolism Present on Admission: No
--- NOTE | 2020-01-27 12:37 | PC.NURSE ---
Discharge Pt states pain is tolerable and declines percocet this shift. Up independently in the room. PIV and NELLI removed prior to d/c. D/c instructions provided to pt. Aware of f/u apt with MD and also to contact MD with any additional questions or concerns. Pt states he took all belongings with him. Left in w/c with EMT B escort to car with his inside, she did not come up into the hospital.
== END 2020-01-27 12:40 | disposition home or self-care (01) | DRG 342 ==
LOC: ED 14:50 → AC 01-24 07:00
PROVIDERS: Emergency Medicine; Specialist; Surgery; Admitting Provider Surgery; Emergency Provider Nurse Practitioner Family; PCP Family Medicine; Visit Provider Surgery
PROC: 0DTJ0ZZ Resection of Appendix, Open Approach (ICD-10-PCS; CPT 44950; principal; 2020-01-23 17:00)
DX: K35.80 Unspecified acute appendicitis (principal); K57.20 Diverticulitis of large intestine with perforation and abscess without bleeding; K21.9 Gastro-esophageal reflux disease without esophagitis
CPT/HCPCS: 36415; 44950; 74177; 80053; 80076; 81001; 83605; 84145; 85025; 85610; 85730; 87040; 87070; 87075; 87205; 87507; 96361; 96365; 96368; 96375; 99221; 99284; J0330; J1100; J1650; J1885; J2250; J2405; J2543; J2704; J3010; J7121; Q9967

== ENCOUNTER → 2020-02-01 11:14 | Outpatient (CLI) | payer OTHER, SELFPAY ==
[2020-01-23 19:05] VITALS: BMI 25.8
[2020-02-01 11:27] LABS: Add Manual Diff / Slide Review NO; Basophils Absolute Auto 100 /uL (0-100); Basophils Percent Auto 1.4 % (0-2); Eosinophils Absolute Auto 100 /uL (0-450); Eosinophils Percent Auto 1.8 % (2-4); Hematocrit 42.2 % (41-53); Hemoglobin 14.8 g/dL (13.5-17.5); Lymphocytes Absolute Auto 1800 /uL (1100-4500); Lymphocytes Percent Auto 34.6 % (25-40); Mean Corpuscular HGB Conc 35.1 % (30-36); Mean Corpuscular Hemoglobin 30.3 PG (26-34); Mean Corpuscular Volume 86.1 fL (80-100); Monocytes Absolute Auto 700 /uL (0-900); Monocytes Percent Auto 12.9 % (3-14); Neutrophils Absolute Auto 2600 /uL (1500-7000); Neutrophils Percent Auto 49.3 % (50-75); Platelet Count 366 X10^3/uL (150-400); Red Cell Distribution Width 13.1 % (11.6-14.8); White Blood Cell Count 5.2 X10^3/uL (4.5-11.0)
[2020-02-01 11:40] LABS: Bilirubin Total 1.3 mg/dL (0.2-1.3)
== END ==
PROVIDERS: PCP Family Medicine; Referring Provider Specialist; Visit Provider Specialist
DX: E80.6 Other disorders of bilirubin metabolism (principal); K35.80 Unspecified acute appendicitis
CPT/HCPCS: 36415; 82247; 82248; 85025

== ENCOUNTER → 2020-02-23 12:17 | Outpatient (CLI) | payer OTHER, SELFPAY ==
[2020-01-23 19:05] VITALS: BMI 25.8
--- NOTE | 2020-02-23 | DI.MRI.S_ITS ---
PROCEDURE: MR HEAD/BRAIN WO CON INDICATIONS: PARESTHESIA OF SKIN TECHNIQUE: Noncontrast axial T1 spin echo, axial T2 fast spin echo, sagittal and axial FLAIR, coronal T2 fast spin echo, axial gradient echo, axial diffusion and ADC through the brain. COMPARISON: None. FINDINGS: Image quality: Excellent. CSF Spaces: Basal cisterns are patent. No extra-axial fluid collections. Ventricles are normal in size and shape. Brain: No intracranial masses or hemorrhage. Galvan/white matter interface is normal. Brainstem appears normal. Diffusion-weighted images demonstrate no acute ischemic insult. No chronic ischemic insults. Normal intravascular flow voids are present. Skull and face: Calvarium has normal marrow signal. Orbits appear normal. Sinuses: Sinuses and mastoids are clear except for slight mucosal thickening involving the maxillary sinuses and ethmoid air cells, without air-fluid level.. IMPRESSION: Normal brain MRI, source of current paresthesias is not found. Incidental note made of mild mucosal thickening without air-fluid level as discussed above involving the maxillary sinuses and ethmoid air cells. Dictated by: Asher Crisostomo M.D. on 02/23/2020 at 13:46 Approved by: Asher Crisostomo M.D. on 02/23/2020 at 13:48
== END ==
PROVIDERS: PCP Family Medicine; Referring Provider Psychiatry & Neurology Neurology; Visit Provider Psychiatry & Neurology Neurology
DX: R20.2 Paresthesia of skin (principal)
CPT/HCPCS: 70551

== ENCOUNTER → 2021-02-07 08:32 | Outpatient (CLI) | payer OTHER, SELFPAY ==
[2020-01-23 19:05] VITALS: BMI 25.8
--- NOTE | 2021-02-07 | DI.MRI.S_ITS ---
PROCEDURE: MR ABDOMEN WO/W CON INDICATIONS: Abnormal levels of other serum enzymes. Evaluate for PBC. TECHNIQUE: Coronal HASTE, axial 2D FLASH in- and [id number]; axial breath-hold T2 FSE. Dynamic axial VIBE during the administration of contrast; post-contrast coronal VIBE or 2D FLASH with fat saturation from the hepatic dome to the iliac crests. Optional diffusion weighted imaging and ADC may be performed. COMPARISON: [facility], CT, CT ABDOMEN PELVIS W CON, 01/23/2020, 13:44. FINDINGS: Image quality: There is mild motion artifact. Lung bases: No basal pleural effusions. Heart size is normal. Solid organs: The liver demonstrates no discrete mass, definite abnormal enhancement, or suspicious areas of washout. No intra or extrahepatic biliary ductal dilatation. No biliary ductal wall thickening or periductal enhancement. Gallbladder appears within normal limits without gallstones. Pancreas is normal in morphology without a discrete mass. Spleen is normal in size and enhancement. No adrenal nodules. Both kidneys demonstrate normal size and enhancement, without hydronephrosis. Nodes and vessels: No retroperitoneal or mesenteric adenopathy by size criteria. Aorta and inferior vena cava are normal in size. Bowel and peritoneum: Visualized bowel loops are normal in caliber. No free fluid. Bones and soft tissues: No ventral hernias. Bone marrow is normal in overall signal. IMPRESSION: 1. No discrete hepatic mass or definite abnormal enhancement. 2. No biliary ductal dilatation or ductal wall thickening. Dictated by: Roshan Hare M.D. on 02/07/2021 at 11:45 Approved by: Roshan Hare M.D. on 02/07/2021 at 11:50
== END ==
PROVIDERS: PCP Family Medicine; Referring Provider Internal Medicine Gastroenterology; Visit Provider Internal Medicine Gastroenterology
DX: R74.8 Abnormal levels of other serum enzymes (principal); R17 Unspecified jaundice; R10.9 Unspecified abdominal pain
CPT/HCPCS: 74183; A9579